=== PATIENT | female | born 1955 | race Caucasian/White ===

== ENCOUNTER → 2017-06-15 09:42 | Outpatient (CLI) | payer BC, SELFPAY ==
[2017-06-15 10:35] VITALS: PULSE 85; PULSE 90
[2017-06-15 12:05] VITALS: BP 130/84; BP 170/98; PULSE 107; PULSE 85; RESP 16; RESP 26; O2SAT 92; O2SAT 94
== END ==
PROVIDERS: Family Provider Family Medicine; PCP Family Medicine; Visit Provider Nurse Practitioner Family
DX: J44.9 Chronic obstructive pulmonary disease, unspecified (principal)
CPT/HCPCS: 94618; 94640; 94726

== ENCOUNTER → 2017-10-05 12:23 | Outpatient (CLI) | payer BC, SELFPAY ==
[2017-10-05 13:45] LABS: Alanine Aminotransferase 19 U/L (12-78); Albumin/Globulin Ratio 1.1 (1.1-1.8); Alkaline Phosphatase 92 U/L (46-116); Aspartate Amino Transferase 11 U/L (15-37); Bilirubin,Total 0.3 mg/dL (0.2-1.0); Blood Urea Nitrogen 10 mg/dL (7-18); Calcium 10.3 mg/dL (8.5-10.1); Carbon Dioxide 27 mmol/L (21.0-32.0); Chloride 99 mmol/L (98-107); Creatinine,Serum 0.46 mg/dL (0.55-1.02); Estimated Glomerular Filt Rate 139 ml/min (>60); GFR (African American) 168 ML/MIN (>60); Globulin 3.5 gm/dl (1.3-3.2); Glucose 109 mg/dL (74-106); Sodium 138 mmol/L (136-145); Total Protein,Serum 7.5 gm/dL (6.4-8.2); Troponin I < 0.02 ng/ml (0.00-0.06)
[2017-10-05 14:13] LABS: D-Dimer 167 ng/mL (0-400)
--- NOTE | 2017-10-05 14:14 | CT_ITS ---
CT angio chest HISTORY: ITS.REASON: CHEST PAIN AT REST ORDERING PHYSICIAN: Yakelin Montes PATIENT AGE: 62 years COMPARISON: None TECHNIQUE: Axial images obtained following the administration of 75 mL of Isovue 370 . Sagittal, and coronal reformatted images are also generated and reviewed. All CT scans at the facility use one or more dose reduction, viz: automated exposure control; ma/kV adjustment per patient size (including targeted exams where dose is matched to indication; i.e. head); or iterative reconstruction technique. FINDINGS: There is enlargement of the lower pole of the thyroid gland on the left with isodense changes present posteriorly suggesting a 19 x 13 mm nodule. This may be confirmed with ultrasound. No evidence of pulmonary embolus. No evidence of aortic aneurysm or dissection. There are atheromatous changes of the aorta and ostia of the great vessels. There are coronary artery calcifications present. No mediastinal or hilar mass or adenopathy Centrilobular emphysematous changes are present. No lobar consolidation or collapse. There is hyperinflation with bronchial thickening consistent with COPD. There is evidence of old granulomatous disease a 4 mm noncalcified fissural nodule present in the left major fissure inferiorly. Minimal atelectatic or fibrotic changes are present in the left lung base posterior medially. Upper abdominal images show mild enlargement of the left adrenal gland nonspecific maintaining an adreniform shape. No acute bony anomalies. 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 IMPRESSION: 1. No evidence of pulmonary embolus, aortic aneurysm, or aortic dissection. 2. 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 Atheromatous changes are present involving the thoracic aorta and upper abdominal aorta. 3. Centrilobular emphysema/COPD 4. Enlarged left lobe of the thyroid gland with possible left thyroid nodule
--- NOTE | 2017-10-05 14:36 | HMH.ITSHM ---
VENTOLIN,FLUTICASONE MONTEKELUKAST SODIUM LEXAPRO DILTIAZEM GLIMPERIDE OMEPRAZOLE JANUMET LISINOPRIL THEOPHYLLINE PREDNEISONE LEVAQUIN LANTUS VIT D
== END ==
PROVIDERS: PCP Nurse Practitioner; Visit Provider Nurse Practitioner
DX: R07.9 Chest pain, unspecified (principal); R06.02 Shortness of breath
CPT/HCPCS: 36415; 71275; 80053; 82565; 83880; 84484; 84520; 85378; Q9967

== ENCOUNTER → 2017-11-24 09:28 | Outpatient (CLI) | payer BC, SELFPAY ==
--- NOTE | 2017-11-24 09:37 | CT_ITS ---
CT abdomen wo con CLINICAL INDICATION: Left upper quadrant pain, recent fall with injury and pain ITS.REASON: ABDOMINAL PAIN ORDERING PHYSICIAN: Yakelin Montes PATIENT AGE: 62 years COMPARISON: None TECHNIQUE: Axial images obtained with sagittal and coronal reformats. All CT scans at the facility use one or more dose reduction, viz: automated exposure control, ma/kV adjustment per patient size (including targeted exams where dose is matched to indication, i.e. head), or iterative reconstruction technique. PROCEDURE: Oral Contrast: None IV Contrast: None . FINDINGS: There are atelectatic changes in the left lung base which have developed since 10/05/2017. The liver has an unremarkable appearance. There are multiple stones within a contracted gallbladder. The spleen has an unremarkable appearance. Left adrenal gland is somewhat enlarged but maintains an adreniform shape. Unremarkable. Right adrenal gland. There is a homogeneous area of soft tissue density in the region of the pancreatic head measuring 2 x 1.8 cm. Repeat exam with pancreatic protocol without and with contrast suggested for further evaluation. There are some punctate calcifications in the region of the pancreatic head as well which could represent sequela from chronic pancreatitis Unremarkable kidneys. There is a small ventral abdominal wall hernia containing fat. No intestinal obstruction or free air. Degenerative disc disease is present in the lower thoracic and lumbar spine. IMPRESSION: 1. Cholelithiasis. 2. 2 cm hypoattenuating lesion in the pancreatic head. Further workup with pancreatic protocol without with contrast suggested for better classification of the lesion. 3. Scattered calcific densities in the pancreatic head suggesting chronic pancreatitis. 4. Small ventral abdominal wall hernia containing fat
== END ==
PROVIDERS: Family Provider Family Medicine; PCP Nurse Practitioner; Visit Provider Nurse Practitioner
DX: R10.12 Left upper quadrant pain (principal)
CPT/HCPCS: 74150

== ENCOUNTER 2018-08-25 14:15 | Observation (INO) ==
[2018-08-25 14:37] LABS: Basophils # 0.1 K/mm3 (0-0.2); Eosinophils # 0.2 K/mm3 (0.0-0.4); Eosinophils % 1.6 % (0.1-12.0); Hematocrit 50.2 % (37.0-47.0); Hemoglobin 16.9 g/dL (12.2-16.2); Lymphocytes # 4.2 K/mm3 (0.7-4.5); Lymphocytes % 29.3 % (10-50); Mean Corpuscular HGB Conc 33.6 g/dL (31.8-35.4); Mean Corpuscular Hemoglobin 29.5 pg (27.0-31.2); Mean Corpuscular Volume 87.9 fl (81-99); Mean Platelet Volume 7.9 fl (7.4-10.4); Monocytes # 0.9 K/mm3 (0.1-1.0); Monocytes % 6.3 % (1.7-9.3); Neutrophils # 8.8 K/mm3 (1.8-7.8); Neutrophils % 61.8 % (37.0-80.0); Platelet Count 284 K/mm3 (142-424); White Blood Count 14.3 K/mm3 (4.8-10.8)
--- NOTE | 2018-08-25 14:45 | Emergency Department Note ---
ED Disposition Clinical Impression: Right facial numbness Disposition: Admitted as Observation Condition on Discharge: Fair Referrals: Provider,Referral, [Primary Care Provider] - - Critical Care Critical Care Time: No Attestation: On 08/25/18, the high probability of a clinically significant, sudden or life threatening deterioration of the following system(s) required my full and direct attention, intervention and personal management. The time I documented below is in addition to time spent performing reported procedures but includes the following listed in this critical care notation. Medical Decision Making - Ariel Inquiry Pt receiving controlled substance: No Vital Signs: 08/25/18 14:16 08/25/18 15:05 08/25/18 15:46 Temperature 97.0 F L Temperature Source Temporal Artery Scan Pulse Rate [Right Brachial] 81 76 73 Respiratory Rate 21 20 20 Blood Pressure [Right Arm] 163/85 H 160/70 H 154/65 H Blood Pressure Mean [Right Arm] 111 100 94 Blood Pressure Source [Right Arm] Automatic Cuff Automatic Cuff Automatic Cuff Blood Pressure Position [Right Arm] Sitting Sitting Sitting 02 Sat by Pulse Oximetry 98 91 L 93 L Oxygen Delivery Method Room Air Room Air Room Air 08/25/18 16:38 Temperature Temperature Source Pulse Rate [Right Brachial] 80 Respiratory Rate Blood Pressure [Right Arm] 161/77 H Blood Pressure Mean [Right Arm] 105 Blood Pressure Source [Right Arm] Automatic Cuff Blood Pressure Position [Right Arm] Sitting 02 Sat by Pulse Oximetry 91 L Oxygen Delivery Method Room Air - Lab Data Lab Results 08/25/18 14:15: WBC 14.3 H, RBC 5.70 H, Hgb 16.9 H, Hct 50.2 H, MCV 87.9, MCH 29.5, MCHC 33.6, RDW 14.0, Plt Count 284, MPV 7.9, Neut % (Auto) 61.8, Lymph % (Auto) 29.3, [place] % (Auto) 6.3, Eos % (Auto) 1.6, Baso % (Auto) 1.0, Neut # (Auto) 8.8 H, Lymph # (Auto) 4.2, [place] # (Auto) 0.9, Eos # (Auto) 0.2, Baso # (Auto) 0.1 08/25/18 14:15: Sodium 136, Potassium 3.4 L, Chloride 99, Carbon Dioxide 28, Anion Gap 12.4, BUN 11, Creatinine 0.59, Estimated Creat Clear 85, Estimated GFR 104, Est GFR ( Amer) 125, Glucose 208 H, Calcium 9.4, Total Bilirubin 0.4, AST 4 L, ALT 28, Alkaline Phosphatase 113, Troponin I < 0.02, Total Protein 8.3 H, Albumin 4.2, Globulin 4.1 H, Albumin/Globulin Ratio 1.0 L 08/25/18 14:15: Theophylline 7.6 L Result diagrams: 08/25/18 14:15 08/25/18 14:15 Orders (Tests/Meds): ED MEDICATIONS Generic Name Dose Route Start Last Admin Trade Name Freq PRN Reason Stop Dose Admin Insulin Human Lispro 0 unit 08/25/18 21:00 Humalog 100 Units/Ml 3ml Vial (Ssi) SQ 09/24/18 20:59 ACHS ESTRADA Protocol Discontinued Medications Generic Name Dose Route Start Last Admin Trade Name Freq PRN Reason Stop Dose Admin Aspirin 324 mg 08/25/18 17:40 Aspirin 81mg Chewable Tablet PO 08/25/18 17:41 ONCE ONE Ioversol 100 ml 08/25/18 16:56 08/25/18 16:57 Rad-Optiray 320 50ml Syringe IV 08/25/18 16:57 100 ml ONCE ONE Administration Protocol Ondansetron HCl 4 mg 08/25/18 17:38 Zofran 4mg/2ml Vial IV 08/25/18 17:39 ONCE ONE - CT Data CT Scan: Head Time Received: 17:[address] Reviewed: Yes: I have viewed the radiologist's interpretation Findings Narrative: CT Head #1 no contrast: IMPRESSION: 1. Possible small space-occupying lesion in the left frontal lobe versus partial by larissa artifact. Consider follow-up exam without and with contrast 2. Otherwise negative Dictated By: Venkatesh Garg MD Signed By: <Electronically signed by Venkatesh Garg MD in [place]> 08/25/[address] Head #2 with and without contrast: IMPRESSION: No acute intracranial findings. No enhancing lesion. Subtle low density in the left frontal lobe may be due to an area of minor encephalomalacia change versus artifact Dictated By: Venkatesh Garg MD Signed By: <Electronically signed by Venkatesh Garg MD in [place]> 08/25/18 3834 - ECG Data Tracing #1 EKG interpreted by Shay Zepeda MD: Rhythm: sinus Rate: 73 [place]: Left Ectopy: Premature ventricular contraction Conduction: normal ST Segment Changes: none T Wave Changes: none Q Waves: none Poor R wave progression - Physician Consults Physician Consulted: Amrita Time: 17:25 Reason -: Admission Comment/Response: Agrees to admit the patient to the hospital. We discussed the patient's clinical information, including history, exam, laboratory and radiology results and ED course. Per hospital procedure, I will write temporary bridge inpatient orders on the patient. Specific orders requested by the admitting physician: Aspirin, carotid dopplers tomorrow - Reevaluation(s) Time: 17:40 Reevaluation #1: No change in facial numbness. No new neurologic deficits. No facial weakness. Just has right-sided facial decreased sensation. Complains of nausea with movement. General Adult HPI - General Chief complaint: PAIN Stated complaint: sinus infection, head pain Time Seen by Provider: 08/25/18 14:45 Mode of Arrival: Ambulatory Limitations: No Limitations Description of Symptoms (Recalled from ER Triage Doc. by RN): nasal congestion, sinus drainage, right side facial pain - History of Present Illness HPI narrative: Complains of right-sided facial numbness, vomiting that began" 2 wee hours of the morning". She cannot tell me what time the onset was. She is currently being treated for sinus infection. Has been having sinus drainage and pressure in her cheeks. She is currently on antibiotics and steroids. 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 Denies a headache or any pain at this time. Currently does not have nausea or dizziness. - Related Data Home Medications Medication Instructions Recorded Confirmed Ergocalciferol (Vitamin D2) 50,000 units PO WEEKLY 08/25/18 08/25/18 [Drisdol 50,000 units (1.25mg) capsule] Escitalopram Oxalate 20 mg PO DAILY 08/25/18 08/25/18 Glimepiride 4 mg PO DAILY 08/25/18 08/25/18 Insulin Glargine,Hum.rec.anlog 20 unit SQ DAILY 08/25/18 08/25/18 [Osbaldoaglvioleta Smith U-100] Omeprazole [Omeprazole 20mg 20 mg PO DAILY 08/25/18 08/25/18 Capsule] Potassium Chloride [Klor-con 20 20 mg PO DAILY 08/25/18 08/25/18 mEq tablet] Theophylline Anhydrous 400 mg PO BID 08/25/18 08/25/18 [Theophylline] cephALEXin [cephALEXin 500mg 500 mg PO BID 08/25/18 08/25/18 capsule] dilTIAZem HCl [Diltiazem 300mg 300 mg PO DAILY 08/25/18 08/25/18 24Hr ER Cap] predniSONE [Deltasone 20mg 20 mg PO BID 08/25/18 08/25/18 tablet] Allergies Allergy/AdvReac Type Severity Reaction Status Date / Time penicillin G [PENICILLIN G] Allergy Mild Unverified 04/07/17 15:34 [facility] History - Hepatitis A Screen Drug use history?: No High risk sexual behaviors?: No History of sexually transmitted infection?: No Currently employed?: No Childcare worker?: No Do you have indoor plumbing?: Yes Do you have electricity?: Yes Attestation statement:: This patient has been screened for Hepatitis A risk factors. I have reviewed the patient's past medical history: Yes ROS Obtained: Yes All systems reviewed & no additional complaints - Constitutional Constitutional: Denies fever(s) - Eyes Eyes: Denies change in vision - Cardiovascular Cardiovascular: Denies chest pain - Respiratory Respiratory: No dyspnea - Gastrointestinal Gastrointestingal: Reports: nausea, vomiting. Denies: abdominal pain - Neurologic Neurologic: Denies headache(s), Reports numbness (Right face), Denies weakness Comments: No numbness or weakness of extremities Physical Exam - General General appearance: alert, in no apparent distress - Head Head exam: atraumatic, normocephalic - Eye Eye exam: Present: normal appearance, PERRL, EOMI - ENT ENT exam: Present: mucous membranes moist - Neck Neck exam: Present: normal inspection, trachea midline - Chest Chest inspection: Present: normal inspection, symmetric chest wall rise - Respiratory Respiratory exam: Present: normal lung sounds bilaterally. Absent: respiratory distress - Cardiovascular Cardiovascular exam: Present: regular rate, normal rhythm, normal heart sounds - Abdominal Exam Abdominal exam: Present: soft. Absent: distention, tenderness - Extremities Exam Extremities exam: Present: normal inspection - Neurological Exam Neurological exam: Present: alert, oriented X3 - Expanded Neurological Exam Comment: Decreased sensation in her right side of face both forehead and lower face. Sensation intact otherwise. No facial droop, normal smile and grimace. Remainder of cranial nerves, motor, and sensory normal. [id number] normal. - Psychiatric Psychiatric exam: Present: normal affect, normal mood - Skin Skin exam: Present: warm, dry
[2018-08-25 14:47] LABS: Alanine Aminotransferase 28 U/L (12-78); Albumin Level 4.2 gm/dL (3.4-5.0); Alkaline Phosphatase 113 U/L (46-116); Anion Gap 12.4 mEq/L (5-15); Aspartate Amino Transferase 4 U/L (15-37); Bilirubin,Total 0.4 mg/dL (0.2-1.0); Blood Urea Nitrogen 11 mg/dL (7-18); Calcium 9.4 mg/dL (8.5-10.1); Carbon Dioxide 28 mmol/L (21.0-32.0); Chloride 99 mmol/L (98-107); Globulin 4.1 gm/dl (1.3-3.2); Glucose 208 mg/dL (74-106); Potassium 3.4 mmoL/L (3.5-5.1); Sodium 136 mmol/L (136-145); Total Protein,Serum 8.3 gm/dL (6.4-8.2)
--- NOTE | 2018-08-26 07:21 | Pharmacy Consult Notes ---
[facility] Pharmacy VTE Monitoring - Patient Demographics Admission date: 08/25/18 Report Date: 08/26/18 Time: 07:21 Allergies/Adverse Reactions: Patient Allergies penicillin G [PENICILLIN G] Allergy (Mild, Verified 08/25/18 19:34) Height: 1.75 m Weight: 87.146 kg Patient Problems: Current Active Problems (Updated 08/25/18 @ 17:40 by Shay Zepeda MD) Right facial numbness (Acute) - VTE Risk Labs: VTE Related Lab Results Hgb 16.9 g/dL (12.2-16.2) H 08/25/18 14:15 Hct 50.2 % (37.0-47.0) H 08/25/18 14:15 Plt Count 284 K/mm3 (142-424) 08/25/18 14:15 BUN 11 mg/dL (7-18) 08/25/18 14:15 Creatinine 0.59 mg/dL (0.55-1.02) 08/25/18 14:15 Estimated Creat Clear 85 mL/min (50-200) 08/25/18 14:15 Was VTE Risk Assessment Performed: Yes VTE Score: 5 VTE Risk Level: Low Risk Clinical Trial Participant: No - Prophylaxis VTE Prophylaxis Ordered?: Yes Types of VTE Prophylaxis: TEDS Knee High Location of Applied Device: Bilateral Lower Extremeties
--- NOTE | 2018-08-26 07:35 | H&P/Discharge Summary ---
General - General Admission date:: 08/25/18 Discharge date: 08/26/18 *Admission Date: 08/25/18 *Chief complaint: Facial numbness *History of present illness: 63-year-old female presented to the emergency department yesterday afternoon after onset of right sided facial numbness in the forehead and maxillary area. When facial numbness did not resolve after a little over 12 hours patient sought treatment at the emergency department. At that point patient's facial numbness had not worsened nor had it improved. She had been treated for a sinus infection for the last week and admits to a lot of pressure around both eyes. She has a history of Steven's palsy but had not developed any facial asymmetry. Patient was worked up in the emergency department with initial noncontrasted CT scan showing a small area in the left frontal lobe that required repeat CT scanning with contrast. There was no acute infarct identified [facility] History I have reviewed the patient's past medical history: Yes Medical History: Reports:: Chronic Obstructive Pulmonary Disease (COPD), Diabetes Mellitus Type 2 Denies:: Cancer, MRSA *Have you ever received a pneumonia vaccine?: No *Have you received a flu vaccine this season?: Yes Other Surgeries: Yes: Hysterectomy-Total Amputation: No - *Social History Educational Level: Completed High School Smoking Status: Current every day smoker Tobacco Type: cigarettes # Packs/Day (cigarettes): 1 Alcohol Intake: never *Occupational Status:: disabled Household Members: family *Travel in the last 8 weeks: None - Psychiatric History Expresses thoughts of harming self/others: None Suicide Plan Description: No Plan Family Hx:: Asthma, Cancer, Diabetes, Heart Attack, Hyperlipidemia, Hypertension Review of Systems - Constitutional Denies body ache(s), Denies chills, Denies fever(s) - ENT Denies abnormal hearing - *Cardiovascular Denies chest pain - *Respiratory Denies change in phlegm color, Denies chest congestion, Denies shortness of breath with activity - *Gastrointestinal Reports vomiting, Denies abdominal pain - *Musculoskeletal Denies abnormal walking - *Neurologic Reports dizziness, Reports numbness (Right face), Denies abnormal walking, Denies abnormal hearing, Denies abnormal movements, Denies abnormal speech, Denies behavioral changes, Denies burning sensations, Denies confusion, Denies seizure-like activity, Denies unsteadiness, Denies localized weakness, Denies frequent falls, Denies headache(s), Denies weakness Exam Vital signs and Labs for Last 24 Hours: Temp Pulse Resp BP Pulse Ox 98.3 F 77 20 160/79 H 95 08/26/18 04:00 08/26/18 04:00 08/26/18 04:00 08/26/18 04:00 08/26/18 04:00 Laboratory Results - last 24 hr 08/25/18 14:15: WBC 14.3 H, RBC 5.70 H, Hgb 16.9 H, Hct 50.2 H, MCV 87.9, MCH 29.5, MCHC 33.6, RDW 14.0, Plt Count 284, MPV 7.9, Neut % (Auto) 61.8, Lymph % (Auto) 29.3, [place] % (Auto) 6.3, Eos % (Auto) 1.6, Baso % (Auto) 1.0, Neut # (Auto) 8.8 H, Lymph # (Auto) 4.2, [place] # (Auto) 0.9, Eos # (Auto) 0.2, Baso # (Auto) 0.1 08/25/18 14:15: Sodium 136, Potassium 3.4 L, Chloride 99, Carbon Dioxide 28, Anion Gap 12.4, BUN 11, Creatinine 0.59, Estimated Creat Clear 85, Estimated GFR 104, Est GFR ( Amer) 125, Glucose 208 H, Calcium 9.4, Total Bilirubin 0.4, AST 4 L, ALT 28, Alkaline Phosphatase 113, Troponin I < 0.02, Total Protein 8.3 H, Albumin 4.2, Globulin 4.1 H, Albumin/Globulin Ratio 1.0 L 08/25/18 14:15: Theophylline 7.6 L 08/25/18 20:31: POC Glucose 176 H 08/26/18 06:14: POC Glucose 203 H I & O for Last 24 hours: Intake & Output 08/23/18 08/24/18 08/25/18 08/26/18 11:59 11:59 11:59 11:59 Output Total 900 / 900 Balance -900 / -900 Weight 192 lb 2 oz Narrative: Patient is awake and alert sitting up on the side of the bed eating breakfast this morning. HEENT exam: There is no facial rash. There is no facial asymmetry. Tympanic membranes are intact without effusion. Oropharynx is moist and clear. Tongue is in the midline. Pupils are equal round and reactive to light. Neck is without lymphadenopathy. Lungs are clear to auscultation. Heart has a regular rate and rhythm. Neck is without carotid bruits. Neurologic exam: Symmetric upper and lower extremity movement. Intact sensation of all extremities. Decreased sensation in the right forehead and right maxillary area with symmetric sensation along the jaw. Musculoskeletal exam: Symmetric strength of muscle groups in the upper and lower extremities. Hospital Course Hospital Course: Patient was admitted for observation. By the following morning (August 26) patient noted improvement in the numbness of the face. Therefore patient was discharged to home. Results Labs on day of discharge: Labs from last 24 hours 08/26/18 08/25/18 08/25/18 06:14 20:31 14:15 WBC RBC Hgb Hct MCV MCH MCHC RDW Plt Count MPV Neut % (Auto) Lymph % (Auto) [place] % (Auto) Eos % (Auto) Baso % (Auto) Neut # (Auto) Lymph # (Auto) [place] # (Auto) Eos # (Auto) Baso # (Auto) Sodium Potassium Chloride Carbon Dioxide Anion Gap BUN Creatinine Estimated Creat Clear Estimated GFR Est GFR ( Amer) Glucose POC Glucose 203 H 176 H Calcium Total Bilirubin AST ALT Alkaline Phosphatase Troponin I Total Protein Albumin Globulin Albumin/Globulin Ratio Theophylline 7.6 L 08/25/18 08/25/18 14:15 14:15 WBC 14.3 H RBC 5.70 H Hgb 16.9 H Hct 50.2 H MCV 87.9 MCH 29.5 MCHC 33.6 RDW 14.0 Plt Count 284 MPV 7.9 Neut % (Auto) 61.8 Lymph % (Auto) 29.3 [place] % (Auto) 6.3 Eos % (Auto) 1.6 Baso % (Auto) 1.0 Neut # (Auto) 8.8 H Lymph # (Auto) 4.2 [place] # (Auto) 0.9 Eos # (Auto) 0.2 Baso # (Auto) 0.1 Sodium 136 Potassium 3.4 L Chloride 99 Carbon Dioxide 28 Anion Gap 12.4 BUN 11 Creatinine 0.59 Estimated Creat Clear 85 Estimated GFR 104 Est GFR ( Amer) 125 Glucose 208 H POC Glucose Calcium 9.4 Total Bilirubin 0.4 AST 4 L ALT 28 Alkaline Phosphatase 113 Troponin I < 0.02 Total Protein 8.3 H Albumin 4.2 Globulin 4.1 H Albumin/Globulin Ratio 1.0 L Theophylline DS: Diagnosis - Discharge Diagnosis (1) Right facial numbness Status: Acute Discharge Medications - Medications for Discharge Home Medication List at Discharge: No Action dilTIAZem HCl [Diltiazem 300mg 24Hr ER Cap] 300 mg PO DAILY Theophylline Anhydrous [Theophylline] 400 mg PO BID predniSONE [Deltasone 20mg tablet] 20 mg PO BID Potassium Chloride [Klor-con 20 mEq tablet] 20 mg PO DAILY Insulin Glargine,Hum.rec.anlog [Basaglar Kwikpen U-100] 20 unit SQ DAILY Glimepiride 4 mg PO DAILY Escitalopram Oxalate 10 mg PO DAILY Ergocalciferol (Vitamin D2) [Drisdol 50,000 units (1.25mg) capsule] 50,000 units PO DIRECTED cephALEXin [cephALEXin 500mg capsule] 500 mg PO Q12H Lisinopril/Hydrochlorothiazide [Lisinopril-Hctz 20-12.5 mg Tab] 2 tab PO DAILY Omeprazole [Omeprazole 20mg Capsule] 20 mg PO DAILY Albuterol Sulfate [Albuterol Sulfate Hfa] 2 puffs IH Q4HP PRN PRN Reason: SHORTNESS OF AIR Disposition Disposition: Home, Self-Care
--- NOTE | 2018-08-26 07:53 | Carotid Imaging Report ---
"Cerebrovascular Exam Indications: 782.0 Disturbance of skin sensation. IMPRESSIONS 1. The bilateral vertebral arteries are patent with normal antegrade flow. 2. Study suggests 50-69% stenosis involving the right internal carotid artery. 3. Study suggests 20-49% stenosis involving the left internal carotid artery. History: Risk factors: Current tobacco use. Hypertension. Diabetes mellitus. Dyslipidemia. Carotid duplex study. Complete study and Doppler flow study including spectral analysis, color and maria scale imaging. Height: Height: 172.7cm. Height: 68in. Weight: Weight: 90.7kg. Weight: 199.6lb. Body mass index: BMI: 30.4kg/m^2. Body surface area: BSA: 2.11m^2. Location: Bedside. Patient status: Inpatient. CRITICAL FINDINGS - Reported to: Marlen LEON - 5-9-19 - 0730 - 50-69% on LICA Incidental findings: A thyroid cyst in the left lobe is noted incidentally. Tables: Arterial flow: + +--------+--------+ |Location |V sys |V ed | + +--------+--------+ |Right CCA - proximal|96.6cm/s|17.3cm/s| + +--------+--------+ |Right CCA - distal |77cm/s |19.6cm/s| + +--------+--------+ |Right ECA |153cm/s |--------| + +--------+--------+ |Right ICA - proximal|144cm/s |33.2cm/s| + +--------+--------+ |Right ICA - mid |93.7cm/s|24.3cm/s| + +--------+--------+ |Right ICA - distal |88.2cm/s|23.2cm/s| + +--------+--------+ |Right vertebral |60.4cm/s|--------| + +--------+--------+ |Left CCA - proximal |94.3cm/s|9.9cm/s | + +--------+--------+ |Left CCA - distal |77.7cm/s|13.2cm/s| + +--------+--------+ |Left ECA |241cm/s |--------| + +--------+--------+ |Left ICA - proximal |93.2cm/s|16cm/s | + +--------+--------+ |Left ICA - mid |86cm/s |22.6cm/s| + +--------+--------+ |Left ICA - distal |98.7cm/s|24.8cm/s| + +--------+--------+ |Left vertebral |80.5cm/s|--------| + +--------+--------+ Velocity ratios: + + + + + + | |Right, V sys|Right, V ed|Left, V sys|Left, V ed| + + + + + + |Max ICA/dist CCA|1.87 |1.69 |1.27 |1.88 | + + + + + + (Report amended ) Electronically signed by: Venkatesh Garg [id number]"
== END 2018-08-26 09:12 | disposition home or self-care (01) ==
LOC: ER 14:15 → 2ND 14:15
PROVIDERS: ADMIT Emergency Medicine; ATTEND Family Medicine
CPT/HCPCS: 70450; 70470; 71010; 71045; 80053; 80198; 82962; 84484; 85025; 93005; 93880; 96374; 99284; G0378; J2405; Q9967

== ENCOUNTER → 2018-09-07 14:12 | Outpatient (CLI) | payer MEDICAID, SELFPAY ==
--- NOTE | 2018-09-07 14:35 | MR_ITS ---
MR head/brain wo/w con HISTORY: Headache, numbness on right side of the face ITS.REASON: TIA ORDERING PHYSICIAN: Yakelin Montes APRN PATIENT AGE: 63 years Comparison: 08/25/2017 TECHNIQUE: Standard multiplanar multiecho sequences are performed without and with gadolinium enhancement. FINDINGS: No midline shift, mass effect, intracranial hemorrhage, or hydrocephalus is evident. No evidence of acute infarction. There are few scattered periventricular and subcortical T2 white matter hyperintensities consistent with ischemic gliotic change from microvascular disease. No enhancing lesions are evident. The cerebellopontine angle, cerebellum, brainstem are unremarkable. There is increased T2 signal within the midbrain consistent with ischemic gliotic change. The pituitary, optic chiasm, and corpus callosum and craniocervical junction are unremarkable. No mastoid effusion or sinus air-fluid levels evident. There is some opacification of the ethmoid sinuses on the left there is complete opacification of the right maxillary sinus. IMPRESSION: 1. No acute intracranial findings. 2. No evidence of acute infarction. There are mild periventricular ischemic gliotic changes as well as nonspecific increased T2 signal the tom consistent with ischemic gliotic change from microvascular disease. 3. Sinus disease
[2018-09-07 15:15] LABS: Blood Urea Nitrogen 11 mg/dL (7-18); Creatinine,Serum 0.63 mg/dL (0.55-1.02); Estimated Glomerular Filt Rate 96 ml/min (>60); GFR (African American) 116 ML/MIN (>60)
--- NOTE | 2018-09-07 15:49 | HMH.ITSHM ---
Current Home Medications as stated by this patient Ev Gaona or customer support representative. [ERGOCALCIFEROL CEPHALEXIN OMREPRAZOLE LISINOPRIL ALBUTEROL ASPIRIN DILTIAZEM THEOPHYLLINE ANHYDROUS POTASSIUM CHLORIDE INSULIN GLIMEPIRIDE ESCITALOPRAM OXALATE
== END ==
PROVIDERS: Visit Provider Nurse Practitioner
DX: G45.9 Transient cerebral ischemic attack, unspecified (principal); G45.1 Carotid artery syndrome (hemispheric)
CPT/HCPCS: 36415; 70553; 82565; 84520; A9576

== ENCOUNTER → 2021-06-28 12:37 | Outpatient (CLI) | payer MEDICARE, OTHER, SELFPAY ==
--- NOTE | 2021-06-28 12:47 | US_ITS ---
FINAL REPORT CLINICAL HISTORY: CLAUDICATION BILATERAL,BILATERAL REST PAIN, DM,HTN,SMOKER,SKIN COLOR CHANGES,WOUNDS LATERAL LEFT ANKLE FINDINGS: ANKLE-BRACHIAL PRESSURE INDICES Pressure indices are as follows: RIGHT LOWER EXTREMITY: Ankle-brachial pressure index: 0.80 Comments: Mildly decreased LEFT LOWER EXTREMITY: Ankle-brachial pressure index: 0.81 Comments: Mildly decreased CONCLUSION: Mild vascular disease of the lower extremities Reviewed, Interpreted and Dictated by Shai Schwarz III, MD Transcribed by Maxine Ambriz Authenticated by Shai Schwarz III, MD on 06/28/2021 03:32:33 PM [facility]
== END ==
PROVIDERS: Visit Provider Family Medicine
DX: E11.40 Type 2 diabetes mellitus with diabetic neuropathy, unspecified (principal); R29.898 Other symptoms and signs involving the musculoskeletal system; I73.9 Peripheral vascular disease, unspecified
CPT/HCPCS: 93923

== ENCOUNTER 2022-04-15 07:49 | Inpatient (IN) | payer MEDICARE, OTHER, SELFPAY ==
[2022-04-15] VITALS (46 sets, daily range): BP systolic 87–165; BP diastolic 41–96; PULSE 70–100; RESP 12–22; TEMP 36.1–43; O2SAT 89–97; BMI 23.6
--- NOTE | 2022-04-15 08:10 | PC.NURSE ---
RICHA POTTS at
--- NOTE | 2022-04-15 08:11 | PC.NURSE ---
dr. ballard at bedside
--- NOTE | 2022-04-15 08:14 | XR_ITS ---
FINAL REPORT CLINICAL HISTORY: abdo pain COMPARISON: August 2018 FINDINGS: The heart size is normal. The mediastinum is within normal limits. There is left basilar opacity. There is no pleural effusion. There is no pneumothorax. There are mild degenerative changes of the shoulders. IMPRESSION: Left basilar opacity favoring atelectasis over pneumonia. Reviewed, Interpreted and Dictated by Shai Schwarz III, MD Transcribed by Adam Mckeon Authenticated and [facility]
--- NOTE | 2022-04-15 08:16 | HMH.EDGENADL ---
Discharge Plan Disposition Patient Disposition: Admitted As Inpatient Condition: Serious Prescriptions Prescriptions: No Action theophylline 400 MG tablet extended release 24 hr 400 mg PO BID Label Comments: TAKE BY MOUTH DIRECTED TWICE DAILY prednisone 20 MG tablet 20 mg PO BID Label Comments: TAKE 1 TABLET BY MOUTH TWICE DAILY UNTIL ALL TAKEN --TAKE WITH FOOD-- diltiazem HCl 300 MG capsule,extended release 24 hr 300 mg PO DAILY potassium chloride 20 MEQ tablet 20 mg PO DAILY Label Comments: TAKE 1 TABLET BY MOUTH EVERY DAY --TAKE WITH FOOD-- cephalexin 500 MG capsule 500 mg PO Q12H Label Comments: TAKE 1 CAPSULE BY MOUTH EVERY 12 HOURS UNTIL ALL TAKEN glimepiride 4 MG tablet 4 mg PO DAILY Label Comments: TAKE 1 TABLET BY MOUTH ONCE DAILY WITH BREAKFAST OR THE FIRST MAIN MEAL OF THE DAY Rx Instructions: WITH BREAKFAST OR FIRST MEAL omeprazole 20 MG capsule,delayed release(DR/EC) 20 mg PO DAILY Label Comments: TAKE 1 CAPSULE BY MOUTH EVERY DAY ergocalciferol (vitamin D2) 50,000 UNIT capsule 50,000 units PO DIRECTED Label Comments: TAKE 1 CAPSULE BY MOUTH TWICE WEEKLY DIRECTED Rx Instructions: TWICE WEEKLY escitalopram oxalate 20 MG tablet 10 mg PO DAILY Label Comments: TAKE 1/2 TABLET BY MOUTH ONCE DAILY insulin glargine 100 UNIT/ML insulin pen 20 unit SQ DAILY lisinopril-hydrochlorothiazide 1 EACH tablet 2 tab PO DAILY albuterol sulfate 8.5 GM HFA aerosol inhaler 2 puffs IH Q4HP PRN (Reason: SHORTNESS OF AIR) Referrals Follow up/Referrals: Provider,Referral, MD [Primary Care Provider] - See instructions Clinical Impressions Clinical Impression: Complete obstruction of small intestine, Incarcerated hernia, Acute dehydration, SARAH (acute kidney injury), Junctional rhythm Instructions Patient Instructions: DI for Diarrhea and Traveler's Diarrhea -- Adult, DI for Diarrhea and Traveler's Diarrhea -- Child, DI for Nausea -- Adult, DI for Nausea -- Child Discharge ED Provider: Shay Zepeda Adult [facility] General Chief complaint: Nausea/Vomiting/Diarrhea Stated complaint: vomiting Time Seen by Provider: 04/15/22 08:05 Mode of Arrival: EMS Source of Information: Patient Limitations: No Limitations Description of Symptoms (Recalled from ER Triage Doc. by RN): Pt reports vomiting x2 days, states unable to keep anything down. Pt vomited in route to hospital with EMS, emesis brown in color. Pt reports a new bulging of her abd x2 days. Area is in L lower abd, tender to the touch. Pt states has known umbilical herna- noted to be protruding, states she does not think it has changed. History of Present Illness HPI narrative: Brought in by ambulance. 2-day history of left lower quadrant pain, left lower quadrant mass, intractable vomiting. Last bowel movement was yesterday and was normal. No diarrhea. No fever. Complains of thirst and dry mouth, decreased urination. She is diabetic, states her blood sugar has been good. She has a ventral hernia in the epigastric area which is chronic, but now has a new mass in the left lower quadrant since Thursday. Prior cholecystectomy, hysterectomy, appendectomy. Related Data Home Medications Medication Instructions Recorded Confirmed cephalexin 500 mg capsule 500 mg PO Q12H Sinus infection 08/25/18 08/26/18 diltiazem HCl 300 mg capsule,24 300 mg PO DAILY Hypertension 08/25/18 08/25/18 hr,extended release ergocalciferol (vitamin D2) 1,250 50,000 units PO DIRECTED 08/25/18 08/26/18 mcg (50,000 unit) capsule supplement escitalopram oxalate 20 mg tablet 10 mg PO DAILY Depression 08/25/18 08/26/18 glimepiride 4 mg tablet 4 mg PO DAILY Diabetes 08/25/18 08/25/18 insulin glargine 100 unit/mL (3 20 unit SQ DAILY Diabetes 08/25/18 08/25/18 mL) subcutaneous pen omeprazole 20 mg capsule,delayed 20 mg PO DAILY GERD 08/25/18
--- NOTE | 2022-04-15 08:16 | PC.NURSE ---
rad notified of xray order
--- NOTE | 2022-04-15 08:22 | ECG_ITS ---
APPROVED REPORT Exam: Resting ECG HR:87 bpm ECG Measurements Heart Rate 87 AXES GA 119 P 270 QRSd 105 QRS -60 QT 400 T 88 QTc 445 Conclusion JUNCTIONAL RHYTHM LEFT ANTERIOR FASCICULAR BLOCK [QRS AXIS <= -45, QR IN I, RS IN II] LEFT VENTRICULAR HYPERTROPHY AND ST-T CHANGE [VOLTAGE CRITERIA PLUS ST/T ABNORMALITY] POSSIBLE ANTERIOR MYOCARDIAL INFARCTION , OF INDETERMINATE AGE [30 ms Q WAVE IN V3/V4, OR R < 0.2 mV IN V4] ABNORMAL ECG UNCONFIRMED REPORT Electronically signed by : Donavan Cash MD 04/15/2022 20:09:38
[2022-04-15 08:23] LABS: Coronavirus 19, PCR Not Detected (NotDetected); Influenza A, PCR Not Detected (NotDetected); Influenza B, PCR Not Detected (NotDetected)
[2022-04-15 08:26] LABS: Basophils # 0.2 K/mm3 (0-0.2); Basophils % 0.8 % (0.1-2.0); Eosinophils # 0.2 K/mm3 (0.0-0.4); Eosinophils % 0.8 % (0.1-12.0); Hematocrit 52.8 % (37.0-47.0); Hemoglobin 17.9 g/dL (12.2-16.2); Lymphocytes # 1.3 K/mm3 (0.7-4.5); Lymphocytes % 6.7 % (10-50); Mean Corpuscular Volume 91.1 fl (81-99); Mean Platelet Volume 9.6 fl (7.4-10.4); Monocytes # 1.2 K/mm3 (0.1-1.0); Monocytes % 5.9 % (1.7-9.3); Neutrophils # 16.9 K/mm3 (1.8-7.8); Neutrophils % 85.8 % (37.0-80.0); Platelet Count 269 K/mm3 (142-424); Red Blood Count 5.79 M/mm3 (4.20-5.40); Red Cell Distribution Width 14.4 % (11.5-17.5); White Blood Count 19.7 K/mm3 (4.8-10.8)
[2022-04-15 08:27] LABS: MANUAL DIFFERENTIAL MANUAL DIFFERENTIAL (MANUAL DIFF)
[2022-04-15 08:29] LABS: Potassium 4.3 mmoL/L (3.5-5.1); Sodium 130 mmol/L (136-145)
[2022-04-15 08:32] LABS: Alanine Aminotransferase 21 U/L (12-78); Albumin Level 4.7 g/dl (3.5-5.0); Albumin/Globulin Ratio 1.4 (1.1-1.8); Alkaline Phosphatase 99 U/L (38-126); Aspartate Amino Transferase 22 U/L (14-36); Bilirubin,Total 0.8 mg/dl (0.2-1.3); Calcium 8.9 mg/dl (8.4-10.2); Carbon Dioxide 33 mmol/L (22.0-30.0); Globulin 3.4 g/dL (1.3-3.2); Glucose 347 mg/dl (74-100); Total Protein,Serum 8.1 g/dl (6.3-8.2)
[2022-04-15 08:33] LABS: Lipase 33 U/L (23-300)
--- NOTE | 2022-04-15 08:34 | PC.NURSE ---
radiology in room
--- NOTE | 2022-04-15 08:34 | PC.NURSE ---
rad at BS for portable chest xray
[2022-04-15 08:35] LABS: Lactic Acid 2.3 mmol/L (0.7-2.1)
[2022-04-15 08:38] LABS: Lymphocytes % 6 % (10-50); Monocytes % 11 % (2-9); Neutrophils % 83 % (42-76); Platelet Estimate Normal; RBC Morphology Normal; Total Cells Counted 100
[2022-04-15 08:39] LABS: Creatinine Clearance Estimated 20 mL/min (50-200); Estimated Glomerular Filt Rate 15 ml/min (>60); GFR (African American) 18 ML/MIN (>60)
[2022-04-15 08:40] LABS: Anion Gap 27.3 mEq/L (5-15)
[2022-04-15 08:41] LABS: Blood Urea Nitrogen 109 mg/dl (7-17); Chloride 74 mmol/L (98-107)
--- NOTE | 2022-04-15 08:49 | PC.NURSE ---
0840 CRITICAL LABS RECEIVED FROM [facility] IN LAB. CHLORIDE 74, BUN 109. PT NAME AND R/V. DR. VIRGEN NOTIFIED
--- NOTE | 2022-04-15 09:01 | CT_ITS ---
FINAL REPORT TECHNIQUE: Axial images through the abdomen and pelvis were performed without contrast. This study was performed with techniques to keep radiation doses as low as reasonably achievable, (ALARA). Individualized dose reduction techniques using automated exposure control or adjustment of mA and/or kV according to the patient's size were employed. CLINICAL HISTORY: abdo pain, LLQ mass, poss incarc hernia COMPARISON: 11/24/2017 FINDINGS: ABDOMEN: There is a 7 mm nodule in the left lung base. It is uncertain if this is new or was obscured by atelectasis on the prior exam. There is a calcified granuloma in the right lung base. The heart size is normal. Limited images of the liver are unremarkable. The patient is status post cholecystectomy. There is moderate vascular calcification. The spleen is normal. There is bilateral adrenal gland enlargement, may represent hyperplasia or adenomas. The aorta is normal in caliber. There is no significant free fluid or adenopathy. There is no nephrolithiasis. There is no hydronephrosis. The stomach and proximal and mid small bowel is fluid-filled and distended. PELVIS: The appendix is not identified. There is a large amount of retained stool throughout the colon. There is sigmoid diverticulosis without evidence of diverticulitis. There is a midline supraumbilical hernia containing nonobstructed portions of sigmoid colon. There is a left paramedian anterior pelvic wall hernia containing small bowel loops. Hernia sac measures 7 mm. Findings are consistent with small-bowel obstruction secondary to the pelvic hernia. The urinary bladder is unremarkable. There is no significant free fluid or adenopathy. IMPRESSION: Small bowel obstruction secondary to the pelvic hernia. Left lung base nodule as detailed above. Recommend six-month follow-up chest CT. Reviewed, Interpreted and Dictated by Shai Schwarz III, MD Transcribed by Ghada Le Authenticated and [facility]
--- NOTE | 2022-04-15 09:09 | PC.NURSE ---
pt to CT via stretcher with truck technician
--- NOTE | 2022-04-15 09:09 | PC.NURSE ---
pt to CT via stretcher
--- NOTE | 2022-04-15 09:18 | PC.NURSE ---
Back from CT
--- NOTE | 2022-04-15 09:20 | PC.NURSE ---
pt return from CT
--- NOTE | 2022-04-15 10:01 | XR_ITS ---
FINAL REPORT CLINICAL HISTORY: NG tube placement COMPARISON: 04/15/2022 FINDINGS: SINGLE-VIEW CHEST The heart size is normal. The mediastinum is normal. There is persistent left base atelectasis or pneumonia. New NG tube tip terminates in the body of the stomach. There is no pneumothorax. IMPRESSION: Interval NG tube placement. Persistent left base atelectasis or pneumonia. Reviewed, Interpreted and Dictated by Shai Schwarz III, MD Transcribed by Ghada Le Authenticated and [facility]
--- NOTE | 2022-04-15 10:01 | PC.NURSE ---
Called radiology for portable chest xray to patients room
--- NOTE | 2022-04-15 10:07 | PC.NURSE ---
Radiology in room for x-ray
--- NOTE | 2022-04-15 10:12 | PC.NURSE ---
Addendum entered by Karen Painter RN 04/15/22 10:13: per RICHA POTTS request Original Note: pt NG tube to low intermittent suction at this time
--- NOTE | 2022-04-15 10:50 | PC.NURSE ---
Paged Dr. Ocampo to return call to ER
--- NOTE | 2022-04-15 10:59 | PC.NURSE ---
RICHA POTTS speaking with Dr. Ocampo
--- NOTE | 2022-04-15 11:08 | PC.NURSE ---
Called hospitalist, Dr. Pierce reports hes on another call and will call us back
--- NOTE | 2022-04-15 11:20 | PC.NURSE ---
Dr. Ocampo at BS
--- NOTE | 2022-04-15 11:29 | PC.NURSE ---
RICHA POTTS speaking with Dr. Pierce
--- NOTE | 2022-04-15 11:45 | PC.NURSE ---
Spoke with Geovanna in care management regarding admission
--- NOTE | 2022-04-15 11:55 | PC.NURSE ---
pt transported to OR per stephanie dodd and stephanie son
--- NOTE | 2022-04-15 12:04 | EXP.SURG.CON ---
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 She had previously undergone PREMA/BSO several decades ago. She has a known chronic umbilical hernia containing bowel. She states that several days ago on 04/13/2022 she had developed a knot in the lower abdomen. That this had become quite tender. She states that she has had ongoing vomiting and has been unable to keep anything down. The area in the lower abdomen has been quite tender and sore to touch. Due to the persistence of her symptoms she had finally presented to the emergency department this morning. She was found to have a leukocytosis. She had findings of severe dehydration with acute kidney injury. She underwent CT scan which reveals small bowel obstruction secondary to pelvic hernia . Surgical consultation was obtained. [facility] Disclaimer: The information contained in this section may have been updated after the patient was seen, as this information can be updated by other users. Social History Smoking Status: Current every day smoker tobacco type: cigarettes packs per day: 1 alcohol intake: never current occupational status: disabled Travel in the last 8 weeks: None household members: family caffeine: Yes Review of Systems Constitutional Constitutional: Denies headache(s) and Denies weakness ENT Ears, Nose, Mouth, and Throat: Denies headache(s) *Musculoskeletal Musculoskeletal: Denies numbness *Neurologic Neurologic: Denies headache(s), Denies numbness and Denies weakness Meds Home Medications and Allergies Home Medications Medication Instructions Recorded Confirmed Type cephalexin 500 mg capsule 500 mg PO Q12H Sinus infection 08/25/18 08/26/18 History diltiazem HCl 300 mg capsule,24 300 mg PO DAILY Hypertension 08/25/18 08/25/18 History hr,extended release ergocalciferol (vitamin D2) 1,250 50,000 units PO DIRECTED 08/25/18 08/26/18 History mcg (50,000 unit) capsule supplement escitalopram oxalate 20 mg tablet 10 mg PO DAILY Depression 08/25/18 08/26/18 History glimepiride 4 mg tablet 4 mg PO DAILY Diabetes 08/25/18 08/25/18 History insulin glargine 100 unit/mL (3 20 unit SQ DAILY Diabetes 08/25/18 08/25/18 History mL) subcutaneous pen omeprazole 20 mg capsule,delayed 20 mg PO DAILY GERD 08/25/18 08/25/18 History release potassium chloride 20 mEq 20 mg PO DAILY Supplement 08/25/18 08/25/18 History tablet,extended release(part/cryst) prednisone 20 mg tablet 20 mg PO BID Sinus infection 08/25/18 08/25/18 History theophylline 400 mg 400 mg PO BID COPD 08/25/18 08/25/18 History tablet,extended release 24 hr albuterol sulfate 90 mcg/actuation 2 puffs IH Q4HP PRN SHORTNESS OF 08/26/18 08/26/18 History aerosol inhaler AIR lisinopril 20 2 tab PO DAILY Hypertension 08/26/18 08/26/18 History mg-hydrochlorothiazide 12.5 mg tablet New Prescriptions to Start Prescriptions: Allergies Allergy/AdvReac Type Severity Reaction Status Date / Time penicillin G [PENICILLIN G] Allergy Mild Verified 08/25/18 19:34 Exam (Inpt) Vital signs and Labs for Last 24 Hours: Temp Pulse Resp BP Pulse Ox 98.8 F 91 H 16 101/41 L 96 04/15/22 07:50 04/15/22 11:46 04/15/22 11:46 04/15/22 11:46 04/15/22 11:46 Laboratory Results - last 24 hr 04/15/22 07:58: WBC 19.7 H, RBC 5.79 H, Hgb 17.9 H, Hct 52.8 H, MCV 91.1, MCH 31.0, MCHC 34.0, RDW 14.4, Plt Count 269, MPV 9.6, Neut % (Auto) 85.8 H, Lymph % (Auto) 6.7 L, Rawlins % (Auto) 5.9, Eos % (Auto) 0.8, Baso % (Auto) 0.8, Neut # (Auto) 16.9 H, Lymph # (Auto) 1.3, Rawlins # (Auto) 1.2 H, Eos # (Auto) 0.2, Baso # (Auto) 0.2, Total Counted 100, Neutrophils % (Manual) 83 H, Lymphocytes % (Manual) 6 L, Monocytes % (Manual) 11 H, Platelet Estimate Normal, RBC Morphology Normal 04/15/22 07:58: Sodium 130 L, Potassium 4.3, Chl
[2022-04-15 12:19] LABS: POC Glucose,Bedside 274 (70-110)
[2022-04-15 12:21] LABS: Reflex Lactic Add Lactic Reflex
--- NOTE | 2022-04-15 12:31 | EXP.HP ---
History of Present Illness *Admission Date: 04/15/22 *Reason for visit:: Abdominal pain, dehydration *History of present illness: Ms. Landers is a 66-year-old female with history of COPD (5 L), diabetes, tobacco use disorder (continues to smoke daily). She presented to the ER?with 2 days of vomiting and abdominal pain. Has not had a bowel movement in 1 to 2 days per her report. Been unable to keep anything down. Was brought to the hospital via EMS due to weakness and abdominal pain. Noted to have brown emesis during transport. She has had a new bulge in her abdomen in her left lower quadrant for the past 2 days per her report. This area has been tender to touch. Concern for incarcerated hernia. Evaluated by surgery in the ER. Labs in the ER showed leukocytosis, tachycardia, meeting criteria for SIRS. Also found to have significant dehydration and SARAH. CT of her abdomen revealed small bowel obstruction secondary to pelvic hernia. Taken from the ER to surgery. Medicine consulted for admission. On my evaluation, she denies any diarrhea, fever. Complains of being thirsty. Has had decreased urine output. Seen both before and after surgery. States she is feeling a little better after surgery. Stable on baseline oxygen. Of note, history of multiple abdominal surgeries including PREMA/BSO, cholecystectomy. Chronic umbilical hernia with no history of obstruction. [facility] Disclaimer: The information contained in this section may have been updated after the patient was seen, as this information can be updated by other users. Medical History Arthritis Asthma COPD (chronic obstructive pulmonary disease) Diabetes Surgical History History of colonoscopy History of laparoscopic cholecystectomy History of total hysterectomy Family History No significant family history Social History Smoking Status: Current every day smoker tobacco type: cigarettes packs per day: 1 alcohol intake: never substance use type: denies use current occupational status: disabled Travel in the last 8 weeks: None household members: family caffeine: Yes Review of Systems Review of Systems Review of systems (narrative): 14 point review of systems performed, pertinent positives and negatives as per HPI Constitutional Constitutional: Denies headache(s) and Denies weakness ENT Ears, Nose, Mouth, and Throat: Denies headache(s) *Musculoskeletal Musculoskeletal: Denies numbness *Neurologic Neurologic: Denies headache(s), Denies numbness and Denies weakness Meds Home Medications and Allergies Home Medications Medication Instructions Recorded Confirmed Type diltiazem HCl 300 mg capsule,24 300 mg PO DAILY HEART RATE 08/25/18 04/15/22 History hr,extended release omeprazole 20 mg capsule,delayed 20 mg PO DAILY GERD 08/25/18 04/15/22 History release potassium chloride 20 mEq 20 mg PO BID Supplement 08/25/18 04/15/22 History tablet,extended release(part/cryst) theophylline 400 mg 400 mg PO BID COPD 08/25/18 04/15/22 History tablet,extended release 24 hr duloxetine 30 mg capsule,delayed 30 mg PO DAILY NEUROPATHY 04/15/22 04/15/22 History release duloxetine 60 mg capsule,delayed 60 mg PO DAILY NEUROPATHY 04/15/22 04/15/22 History release lisinopril 20 2 tab PO DAILY Hypertension 04/15/22 04/15/22 History mg-hydrochlorothiazide 12.5 mg tablet metformin 500 mg tablet 500 mg PO BID Diabetes 04/15/22 04/15/22 History montelukast 10 mg tablet 10 mg PO PM Allergy symptoms 04/15/22 04/15/22 History ondansetron HCl 4 mg tablet 4 mg PO Q6HP PRN Nausea And 04/15/22 04/15/22 History Vomiting New Prescriptions to Start Prescriptions: Allergies Allergy/AdvReac Type Severity Reaction Status Date / Time penicillin
--- NOTE | 2022-04-15 13:04 | P.PN_ITS ---
[facility] Disclaimer: The information contained in this section may have been updated after the patient was seen, as this information can be updated by other users. Social History Smoking Status: Current every day smoker tobacco type: cigarettes packs per day: 1 alcohol intake: never substance use type: denies use current occupational status: disabled Travel in the last 8 weeks: None household members: family caffeine: Yes [facility] Anesthesia Checklist Patient Identification Patient Identification: Arm Band Structural Data Admitted From: Home Planned Operative Procedure/s: Exploratory Laparotomy Consent for Planned Operative Procedure(s) Verified: Yes Verified Documents: Surgical Consent and History and Physical NPO Status Verified Time NPO: 00:00 Additional verifications Anesthesia Reactions: No Airway Assessment C-Spine Mobility Assessed: Yes TMJ Mobility Assessed: Yes Dentition: Good Dentition Anesthesia Plan Anesthesia Risk discussed: Yes Anesthesia Plan: Verified ASA Class: IV (E) Anesthesia Type: General
--- NOTE | 2022-04-15 13:52 | SUR.OPER ---
4 bowel clamp covers counted verified x 2 per S.Kendall RN & C.Kathryn BUCKLE SEWER [id number]-Family updated @ this time.
--- NOTE | 2022-04-15 14:00 | HMH.PHAINT1 ---
Pharmacy Intervention Comments: MEDICATION RECONCILIATION COMPLETED ON PATIENT USING EXTERNAL FILL HISTORY FROM PHARMACY. -BERTR[facility] ADLER, SAPNAD
--- NOTE | 2022-04-15 14:09 | EXP.OP.NOTE ---
Date of procedure: 04/15/22 Pre-op Diagnosis:: Small bowel obstruction secondary to incarcerated incisional hernia Post-op Diagnosis:: Complete small bowel obstruction secondary to strangulated incisional hernia Procedure performed:: Exploratory laparotomy with release of bowel obstruction, small bowel resection with primary anastomosis, primary repair of incisional hernia. Surgeon:: Shai Ocampo MD [employer] MECHANIC:: Misha Novak Anesthesia: GETA Estimated blood loss (mL): 50 Clinical Note:: Patient is a 66-year-old female with history of home oxygen (5L) dependent COPD and diabetes.? She had previously undergone PREMA/BSO several decades ago through a relatively high Pfannenstiel incision.? She has a known chronic supraumbilical trocar site hernia from previous cholecystectomy containing bowel.? She states that several days ago on 04/13/2022 she had developed a knot in the lower abdomen.? That this had become quite tender.? She states that she has had ongoing vomiting and has been unable to keep anything down.? The area in the lower abdomen has been quite tender and sore to touch.? Due to the persistence of her symptoms she had finally presented to the emergency department this morning on 04/15/2022.? She was found to have a leukocytosis.? She had findings of severe dehydration with acute kidney injury with a BUN of 109 and creatinine of 3.2.? She underwent CT scan which reveals small bowel obstruction secondary to pelvic hernia .? Surgical consultation was obtained. Patient was seen and examined in the emergency department. She had findings of possibly strangulated incisional hernia in her suprapubic location with complete bowel obstruction. Plan was made for emergent surgical intervention. Operative findings:: Patient had a short loop of small bowel herniated through a small defect in the left suprapubic location. There was full-thickness necrosis of the loop of bowel without perforation. There was also some omentum which was strangulated within the hernia sac. She had a rather large hernia sac. She does have a supraumbilical trocar site hernia from previous cholecystectomy which is chronic and reducible. This was not disturbed during this surgery. Operative note:: Patient was taken emergently to the operating room. She was placed in a supine position. General anesthesia was induced. Wan catheter was placed. Abdomen was prepped and draped in the standard surgical fashion. Low midline laparotomy incision was made. Dissection was carried down through subcutaneous tissues. Fascia was incised. Ultimately peritoneal cavity was carefully entered. Dissection was carried out inferiorly towards the hernia. There was bowel and omentum herniated through a relatively small defect just to the left of midline. Ultimately the fascial bridge from the midline to the hernia was incised. With blunt dissection the herniated contents was dissected free from the rather large hernia sac in the suprapubic location. There was some strangulated somewhat necrotic omentum as well as a loop of small bowel with complete obstruction with some distention proximally completely decompressed distally. There was full-thickness necrosis of the very short segment loop of small bowel without perforation. Some of the extraneous peritoneum of the hernia sac and the omentum was excised. Omentum was excised using the Enseal device. The short segment of small bowel was resected dividing it proximally and distally with a GABRIELA 75 type stapling device. Small bowel mesentery was incised with the Enseal device. A [id number] small bowel anastomosis was created with a GABRIELA 75 stapling device. Small bowel enterotomy defect was closed with the TX 60 B stapling device. 3 oh Surgilon seromuscular sutures were placed at the staple line angle as well as the confluence of staple lines. The staple line was oversewn with a running locking 3-0 Surgilon. Mesenteric defect was closed with a 2-0 Vicryl. Small sandip
--- NOTE | 2022-04-15 14:27 | P.PNANES_ITS ---
[facility] Anesthesia Record Part I Anesthesia Record I Intake, IV Amount: 2,300 Estimated blood loss (mL): 50 Urine output (mL): 200 Blood Products used (#): none Blood Pressure: 150/65 SaO2: 94 Pulse Rate: 89 Respiratory Rate: 16 Temperature: 97.3 F Patient is:: Drowsy and Stable Stable to PACU at:: 14:20
[2022-04-15 14:51] LABS: Lactic Acid Follow Up (RFLX 1) 1.8 mmol/L (0.7-2.1)
[2022-04-15 15:12] LABS: Microscopic, Urine URINE MICROSCOPIC (MICROSCOPIC)
[2022-04-15 15:22] LABS: Appearance,Urine CLOUDY (Clear); Blood, Urine TRACE-I (Negative); Color,Urine YELLOW (Yellow); Glucose,Urine (UA) Negative (Negative); Ketones,Urine Negative (Negative); Leukocyte Esterase,Urine 1+ (Negative); Nitrate,Urine Negative (Negative); Protein,Urine 1+ (Negative); Specific Gravity, Urine >= 1.030 (1.005-1.030); Urobilinogen,Urine 0.2 EU/dl (0.2)
[2022-04-15 15:33] LABS: Bilirubin,Urine 1+ (Negative)
[2022-04-15 15:52] LABS: Bacteria,Urine 2+ /lpf; Squamous Epithelial Cell,Urine Occasional #/hpf (0-5)
--- NOTE | 2022-04-15 16:40 | PC.NURSE ---
Pt arrived to the floor at this time
[2022-04-16] VITALS (15 sets, daily range): BP systolic 117–156; BP diastolic 46–86; PULSE 56–100; RESP 16–20; TEMP 36.3–36.9; O2SAT 90–98; BMI 20.7
[2022-04-16 01:54] LABS: POC Glucose,Bedside 189 (70-110)
[2022-04-16 02:14] LABS: POC Glucose,Bedside 137 (70-110)
--- NOTE | 2022-04-16 05:31 | PC.NURSE ---
Pt has c/o discomfort x2 this shift. NG tube to (R) nare to low wall suction. 400 ml output this shift. Midline incision with DSG in place. C/D/I. MAHOGANY drain with 30 ml sanguineous drainage. DSG with small blood noted. BS hypoactive. VSS.Pt O2 titrated to 4.5 L O2 NC. F/C draining to bedside. Call light within reach.
[2022-04-16 06:29] LABS: POC Glucose,Bedside 145 (70-110)
[2022-04-16 06:31] LABS: Chloride 93 mmol/L (98-107); Sodium 138 mmol/L (136-145)
[2022-04-16 06:32] LABS: Potassium 3.4 mmoL/L (3.5-5.1)
[2022-04-16 06:34] LABS: Alanine Aminotransferase 12 U/L (12-78); Albumin Level 3.5 g/dl (3.5-5.0); Alkaline Phosphatase 68 U/L (38-126); Anion Gap 12.4 mEq/L (5-15); Aspartate Amino Transferase 21 U/L (14-36); Bilirubin,Total 0.5 mg/dl (0.2-1.3); Blood Urea Nitrogen 68 mg/dl (7-17); Carbon Dioxide 36 mmol/L (22.0-30.0); Creatinine Clearance Estimated 57 mL/min (50-200); Estimated Glomerular Filt Rate 63 ml/min (>60); GFR (African American) 76 ML/MIN (>60)
[2022-04-16 06:35] LABS: Albumin/Globulin Ratio 1.3 (1.1-1.8); Calcium 6.9 mg/dl (8.4-10.2); Globulin 2.7 g/dL (1.3-3.2); Glucose 167 mg/dl (74-100); Magnesium 1.8 mg/dl (1.6-2.3); Total Protein,Serum 6.2 g/dl (6.3-8.2)
[2022-04-16 06:37] LABS: Basophils % 0.3 % (0.1-2.0); Eosinophils # 0.1 K/mm3 (0.0-0.4); Eosinophils % 0.5 % (0.1-12.0); Hematocrit 43.3 % (37.0-47.0); Lymphocytes # 1.4 K/mm3 (0.7-4.5); Lymphocytes % 12.7 % (10-50); Mean Corpuscular HGB Conc 33.1 g/dL (31.8-35.4); Mean Corpuscular Hemoglobin 30.7 pg (27.0-31.2); Mean Corpuscular Volume 92.7 fl (81-99); Mean Platelet Volume 9.4 fl (7.4-10.4); Monocytes % 9.3 % (1.7-9.3); Neutrophils # 8.4 K/mm3 (1.8-7.8); Neutrophils % 77.2 % (37.0-80.0); Platelet Count 193 K/mm3 (142-424); Red Blood Count 4.67 M/mm3 (4.20-5.40); Red Cell Distribution Width 14.3 % (11.5-17.5); White Blood Count 10.9 K/mm3 (4.8-10.8)
[2022-04-16 07:02] LABS: Hemoglobin 14.3 g/dL (12.2-16.2)
--- NOTE | 2022-04-16 07:56 | EXP.ACUTE.PN ---
Subjective *Date: 04/16/22 *Time: 18:30 Interval history: Reports improvement in abdominal pain. Still uncomfortable but not as severe as yesterday. Requesting ice chips. No gas yet or bowel movement. Stable oxygen requirement at baseline O2. Afebrile, hemodynamically stable. Denies nausea. NG in place. Labs reviewed this morning, kidney function normalized. Medical Exam Vital signs and Labs for Last 24 Hours: Vital Signs Temp Pulse Pulse Resp BP BP Pulse Ox 04/16/22 06:00 73 18 129/46 L 90 L 04/16/22 04:00 80 04/16/22 00:00 80 04/15/22 20:00 80 04/16/22 06:01 81 04/16/22 06:01 84 04/16/22 06:01 94 L 04/16/22 04:00 98.2 F 85 17 129/46 L 94 L 04/16/22 02:00 79 16 117/56 L 93 L 04/16/22 00:00 97.9 F 84 17 129/55 L 95 04/15/22 22:15 97.0 F L 86 17 112/49 L 90 L 04/15/22 21:15 97.5 F L 85 16 128/46 L 95 04/15/22 20:15 98.4 F 85 16 116/48 L 91 L 04/15/22 19:15 98.4 F 84 18 115/54 L 95 04/15/22 23:08 88 04/15/22 23:08 87 04/15/22 23:08 93 L 04/15/22 18:15 98.4 F 82 16 144/66 H 96 04/15/22 17:45 98.7 F 79 17 141/63 H 96 04/15/22 17:15 98.6 F 81 18 128/63 97 04/15/22 16:45 98 F 81 19 145/53 H 94 L 04/15/22 16:15 97.9 F 80 21 165/54 H 90 L 04/15/22 16:00 98.1 F 76 21 129/61 89 L 04/15/22 15:45 98.3 F 81 20 138/65 92 L 04/15/22 15:30 98.1 F 72 19 142/65 H 96 04/15/22 17:00 92 L 04/15/22 18:49 04/15/22 16:30 86 16 124/56 L 95 04/15/22 16:20 86 14 120/53 L 94 L 04/15/22 16:10 86 14 125/64 94 L 04/15/22 16:00 84 14 122/57 L 94 L 04/15/22 15:50 84 14 125/57 L 93 L 04/15/22 15:50 14 04/15/22 15:40 84 14 123/55 L 94 L 04/15/22 15:30 85 14 133/60 95 04/15/22 15:20 88 14 125/58 L 96 04/15/22 15:10 82 14 123/57 L 95 04/15/22 15:00 85 15 123/53 L 92 L 04/15/22 15:00 17 04/15/22 14:50 89 12 137/58 L 94 L 04/15/22 14:40 91 H 16 138/63 94 L 04/15/22 14:30 88 16 141/65 H 95 04/15/22 14:20 97.3 F L 87 16 147/71 H 94 L 04/15/22 14:54 12 04/15/22 11:46 91 H 16 101/41 L 96 04/15/22 11:30 70 16 102/43 L 96 04/15/22 11:55 98.8 F 91 H 16 101/41 L 04/15/22 11:15 87 18 101/46 L 97 04/15/22 11:00 74 18 112/43 L 97 04/15/22 10:31 87 16 118/96 H 95 04/15/22 10:07 78 16 101/51 L 93 L 04/15/22 10:00 100 H 18 125/50 L 93 L 04/15/22 09:50 91 H 22 124/63 93 L 04/15/22 09:31 87 19 112/67 93 L 04/15/22 09:30 92 H 16 112/67 93 L 04/15/22 09:00 89 17 124/58 L 93 L 04/15/22 08:31 74 15 120/63 92 L 04/15/22 08:14 92 L 04/15/22 08:00 86 101/58 L 92 L 04/15/22 14:28 97.3 F L 89 16 150/65 H FiO2 04/16/22 06:00 04/16/22 04:00 04/16/22 00:00 04/15/22 20:00 04/16/22 06:01 04/16/22 06:01 04/16/22 06:01 04/16/22 04:00 04/16/22 02:00 04/16/22 00:00 04/15/22 22:15 04/15/22 21:15 04/15/22 20:15 04/15/22 19:15 04/15/22 23:08 04/15/22 23:08 04/15/22 23:08 04/15/22 18:15 04/15/22 17:45 04/15/22 17:15 04/15/22 16:45 04/15/22 16:15 04/15/22 16:00 04/15/22 15:45 04/15/22 15:30 04/15/22 17:00 04/15/22 18:49 28 04/15/22 16:30 04/15/22 16:20 04/15/22 16:10 04/15/22 16:00 04/15/22 15:50 04/15/22 15:50 04/15/22 15:40 04/15/22 15:30 04/15/22 15:20 04/15/22 15:10 04/15/22 15:00 04/15/22 15:00 04/15/22 14:50 04/15/22 14:40 04/15/22 14:30 04/15/22 14:20 04/15/22 14:54 04/15/22 11:46 04/15/22 11:30 04/15/22 11:55 04/15/22 11:15 04/15/22 11:00 04/15/22 10:31 04/15/22 10:07 04/15/22 10:00 04/15/22 09:50 04/15/22 09:31 04/15/22 09:30 04/15/22 09:00 04/15/22 08:31 04/15/22
[2022-04-16 07:57] LABS: POC Glucose,Bedside 180 (70-110)
[2022-04-16 09:02] LABS: Theophylline < 1.0 ug/ml (10-20)
--- NOTE | 2022-04-16 10:56 | P.PN_ITS ---
Subjective Patient reports: feels better Narrative: Overall patient does feel better. She is more talkative and animated. She strongly wishes to go home as soon as possible. White blood cell count has essentially normalized. BUN/creatinine has gone from 109/3.2 to 68/0.9. She has 550 cc out of the NG tube. Exam Data for Last 24 hours Vital signs and Labs for Last 24 Hours: Temp Pulse Resp BP Pulse Ox FiO2 98.3 F 81 18 129/46 L 94 L 28 04/16/22 08:00 04/16/22 06:01 04/16/22 06:00 04/16/22 06:00 04/16/22 06:01 04/15/22 18:49 Laboratory Results - last 24 hr 04/15/22 12:10: Urine Color Yellow, Urine Appearance Cloudy, Urine pH 5.0, Ur Specific [place] >= 1.030, Urine Protein 1+, Urine Glucose (UA) Negative, Urine Ketones Negative, Urine Blood Trace-i, Urine Nitrate Negative, Urine Bilirubin 1+ A, Urine Urobilinogen 0.2, Ur Leukocyte Esterase 1+ A, Urine RBC 3-5, Urine WBC 5-10, Ur Squamous Epith Cells Occasional, Urine Bacteria 2+ 04/15/22 12:11: POC Glucose 274 H 04/15/22 14:30: Lactate 1.8 04/15/22 20:19: POC Glucose 189 H 04/16/22 01:53: POC Glucose 137 H 04/16/22 05:31: POC Glucose 145 H 04/16/22 05:45: Theophylline < 1.0 L 04/16/22 05:45: WBC 10.9 H D, RBC 4.67, Hgb 14.3 D, Hct 43.3, MCV 92.7, MCH 30.7, MCHC 33.1, RDW 14.3, Plt Count 193 D, MPV 9.4, Neut % (Auto) 77.2, Lymph % (Auto) 12.7, [place] % (Auto) 9.3, Eos % (Auto) 0.5, Baso % (Auto) 0.3, Neut # (Auto) 8.4 H, Lymph # (Auto) 1.4, [place] # (Auto) 1.0, Eos # (Auto) 0.1, Baso # (Auto) 0.0 04/16/22 05:45: Sodium 138, Potassium 3.4 L D, Chloride 93 L, Carbon Dioxide 36 H, Anion Gap 12.4, BUN 68 H D, Creatinine 0.90 D, Estimated Creat Clear 57, Estimated GFR 63, Est GFR ( Amer) 76 D, Glucose 167 H D, Calcium 6.9 L, Magnesium 1.8, Total Bilirubin 0.5, AST 21, ALT 12 D, Alkaline Phosphatase 68, Total Protein 6.2 L, Albumin 3.5 D, Globulin 2.7, Albumin/Globulin Ratio 1.3 04/16/22 07:47: POC Glucose 180 H I & O for Last 24 hours: Intake & Output 04/13/22 04/14/22 04/15/22 04/16/22 11:59 11:59 11:59 11:59 Intake Total 1999 / 1999 4122 / 4122 Output Total 750 / 750 2835 / 2835 Balance 1250 / 1250 1287 / 1287 Weight 160 lb 140 lb 3.424 oz *Routine Abdominal Exam Abdominal: Present soft Comments: Dressing dry. Some serosanguineous drainage in the MAHOGANY drain and around the drain site dressing. Progress Note: A&P Assessment and plan (1) Complete obstruction of small intestine: Status: Acute Assessment and plan: Continue NG tube to continuous low wall suction. May DC Wan catheter if okay with hospitalist service. Patient may have some ice chips. (2) Incarcerated hernia: Status: Acute (3) Acute dehydration: Status: Acute (4) SARAH (acute kidney injury): Status: Acute (5) Junctional rhythm: Status: Acute (6) Tobacco use disorder: Status: Acute (7) Diabetes mellitus with hyperglycemia: Status: Acute (8) Chronic hypoxemic respiratory failure: Status: Acute (9) SIRS (systemic inflammatory response syndrome): Status: Acute
--- NOTE | 2022-04-16 15:57 | P.PNANES_ITS ---
[facility] Anesthesia Record Part II Anesthesia Record Part II Discharge Time: 16:30 Destination: Medical Surgical Department PACU nurse assessment reviewed?: Yes Patient Condition:: Good Anesthesia Complications:: None Swallowing reflex intact?: Yes Cyanosis?: No Blood Pressure: 124/86 Pulse Rate: 56 Temperature: 97.3 F Mental Status: Alert & Oriented Pain level:: 0 Nausea and/or vomitting:: None Intake, IV Amount: 0
[2022-04-16 16:28] LABS: POC Glucose,Bedside 174 (70-110)
--- NOTE | 2022-04-16 19:46 | PC.NURSE ---
Patient able to tolerate ice chips but not able to tolerate swallowing cardizen capsules. NG had to be placed back to suction about 20-30 minutes after administering cardizem. Patient shows pvc's on monitor, not frequent and singular. Dr. Pierce notified. VS remain stable and patient remains on 5LNC with oxygen saturations between 91-93%. Abdomen is soft, tender, bowel sounds hypoactive. Patient states hernia is at top of midline incision site. Area is soft and non tender. Midline incision clean dry and intact, MAHOGANY drain 40 ml out on shift.
--- NOTE | 2022-04-16 20:00 | PC.NURSE ---
upon assessment Pt NG tube at 25 cm. tube advanced to 58 cm at the nare. KUB ordered by Maxi SEVILLA. radiology made aware. suction paused at this time.
--- NOTE | 2022-04-16 20:01 | XR_ITS ---
PROCEDURE INFORMATION: Exam: XR Abdomen Exam date and time: 04/16/2022 8:05 PM Age: 66 years old Clinical indication: Device placement; Gi device; Nasogastric tube; Additional info: Ng tube placement TECHNIQUE: Imaging protocol: Radiologic exam of the abdomen. Views: Frontal supine view of the abdomen. 1 View. COMPARISON: CT ABDOMEN PELVIS WO CON 04/15/2022 9:13 AM FINDINGS: Tubes, catheters and devices: Enteric tube tip terminating within the left upper quadrant overlying the expected location of the stomach. Gastrointestinal tract: Normal. No bowel dilation. Bones/joints: Degenerative changes of the spine. No fracture. IMPRESSION: Enteric tube tip terminating within the left upper quadrant overlying the expected location of the stomach.
--- NOTE | 2022-04-16 22:33 | PC.NURSE ---
Addendum entered by Francheska Roca RN 04/16/22 22:33: Will attcach to low wall suction at this time Original Note: Spoke with Maxi SEVILLA. OK to use NG tube based off KUB
[2022-04-17] VITALS (11 sets, daily range): BP systolic 125–156; BP diastolic 52–67; PULSE 69–100; RESP 18–20; TEMP 36.8–37.1; O2SAT 93–98; BMI 23.1
--- NOTE | 2022-04-17 01:14 | XR_ITS ---
PROCEDURE INFORMATION: Exam: XR Abdomen Exam date and time: 04/17/2022 1:28 AM Age: 66 years old Clinical indication: Device placement; Gi device; Nasogastric tube; Additional info: Ng tube TECHNIQUE: Imaging protocol: Radiologic exam of the abdomen. Views: Frontal supine view of the abdomen. 1 View. COMPARISON: CR XR KUB 04/16/2022 8:05 PM FINDINGS: Tubes, catheters and devices: NG tube in the stomach Gastrointestinal tract: Nonspecific bowel gas pattern Bones/joints: Unremarkable. IMPRESSION: NG tube in the stomach.
--- NOTE | 2022-04-17 04:17 | PC.NURSE ---
Pt A&OX4. 14 spanish NG tube 62 cm at right nare, low wall suction in place. Placement confirmed with auscultation and XR. 300 ml gastric drainage this shift. Midline dressing CDI. MAHOGANY drain to LLQ in place, 5 ml sanguineous drainage this shift. Abdomen soft, tender. BS hypoactive. Pt reports excessive flatulence. Wan catheter in place draining clear, yellow urine. Pt remains on 5L NC, O2 sats >90%. NSR with PVC's on tele. 20GIV in LAC with LR infusing @75 ml/hr.
[2022-04-17 06:03] LABS: POC Glucose,Bedside 143 (70-110)
--- NOTE | 2022-04-17 06:55 | P.PN_ITS ---
Subjective Patient reports: flatus and no bowel movement Exam Data for Last 24 hours Vital signs and Labs for Last 24 Hours: Temp Pulse Resp BP Pulse Ox FiO2 98.8 F 100 H 18 134/58 L 93 L 28 04/17/22 03:56 04/17/22 04:00 04/17/22 03:56 04/17/22 03:56 04/17/22 03:56 04/15/22 18:49 Laboratory Results - last 24 hr 04/16/22 05:45: Theophylline < 1.0 L 04/16/22 05:45: WBC 10.9 H D, RBC 4.67, Hgb 14.3 D, Hct 43.3, MCV 92.7, MCH 30.7, MCHC 33.1, RDW 14.3, Plt Count 193 D, MPV 9.4, Neut % (Auto) 77.2, Lymph % (Auto) 12.7, [place] % (Auto) 9.3, Eos % (Auto) 0.5, Baso % (Auto) 0.3, Neut # (Auto) 8.4 H, Lymph # (Auto) 1.4, [place] # (Auto) 1.0, Eos # (Auto) 0.1, Baso # (Auto) 0.0 04/16/22 07:47: POC Glucose 180 H 04/16/22 13:29: POC Glucose 174 H 04/17/22 01:56: POC Glucose 143 H I & O for Last 24 hours: Intake & Output 04/14/22 04/15/22 04/16/22 04/17/22 11:59 11:59 11:59 11:59 Intake Total 1999 / 1999 4122 / 4122 2689 / 2689 Output Total 750 / 750 2835 / 2835 2325 / 2325 Balance 1250 / 1250 1287 / 1287 364 / 364 Weight 160 lb 140 lb 3.424 oz 156 lb 6 oz Microbiology Reports for the Last 24 Hours: Microbiology 04/15/22 12:10 Urine,Clean Catch Urine Culture - Preliminary NO GROWTH AFTER 24 HOURS Constitutional Constitutional: no acute distress *Routine Respiratory Exam Respiratory: Absent respiratory distress *Routine Cardiovascular Exam Comments: Minimally tachycardic *Routine Abdominal Exam Comments: Incision healing without sign of infection. Minimal Cayetano-Hodges drainage output. Progress Note: A&P Assessment and plan (1) Complete obstruction of small intestine: Status: Acute Assessment and plan: Overall, doing well status post partial small bowel resection Increase ambulation Nasogastric tube to drain bag (2) Incarcerated hernia: Status: Acute (3) Acute dehydration: Status: Acute (4) SARAH (acute kidney injury): Status: Acute (5) Junctional rhythm: Status: Acute (6) Tobacco use disorder: Status: Acute (7) Diabetes mellitus with hyperglycemia: Status: Acute (8) Chronic hypoxemic respiratory failure: Status: Acute (9) SIRS (systemic inflammatory response syndrome): Status: Acute
[2022-04-17 07:23] LABS: Sodium 140 mmol/L (136-145)
[2022-04-17 07:26] LABS: Blood Urea Nitrogen 34 mg/dl (7-17); Calcium 7.9 mg/dl (8.4-10.2); Carbon Dioxide 35 mmol/L (22.0-30.0); Creatinine Clearance Estimated 64 mL/min (50-200); Estimated Glomerular Filt Rate 124 ml/min (>60); GFR (African American) 150 ML/MIN (>60); Glucose 169 mg/dl (74-100)
[2022-04-17 07:30] LABS: Basophils % 0.4 % (0.1-2.0); Eosinophils % 0.1 % (0.1-12.0); Hematocrit 38.6 % (37.0-47.0); Hemoglobin 12.5 g/dL (12.2-16.2); Lymphocytes # 1.6 K/mm3 (0.7-4.5); Lymphocytes % 13.6 % (10-50); Mean Corpuscular HGB Conc 32.4 g/dL (31.8-35.4); Mean Corpuscular Hemoglobin 30.4 pg (27.0-31.2); Mean Corpuscular Volume 93.7 fl (81-99); Mean Platelet Volume 9.6 fl (7.4-10.4); Monocytes # 0.9 K/mm3 (0.1-1.0); Monocytes % 7.9 % (1.7-9.3); Neutrophils # 9.3 K/mm3 (1.8-7.8); Neutrophils % 78.1 % (37.0-80.0); Platelet Count 199 K/mm3 (142-424); Red Blood Count 4.12 M/mm3 (4.20-5.40); Red Cell Distribution Width 14.2 % (11.5-17.5); White Blood Count 11.9 K/mm3 (4.8-10.8)
[2022-04-17 07:45] LABS: Chloride 96 mmol/L (98-107)
--- NOTE | 2022-04-17 11:46 | EXP.ACUTE.PN ---
Subjective *Date: 04/17/22 *Time: 20:13 Interval history: Did well overnight. No emesis. Abdominal pain gradually improving. States she is having significant flatus. No significant drainage from NG. Denies chest pain, increase shortness of breath from baseline, confusion. Wanting to ambulate. Will remove Wan today Medical Exam Vital signs and Labs for Last 24 Hours: Vital Signs Temp Pulse Pulse Resp BP BP Pulse Ox 04/17/22 11:00 78 04/17/22 11:00 80 04/17/22 11:00 98 04/17/22 08:00 98.5 F 82 18 136/53 L 93 L 04/17/22 05:40 85 04/17/22 05:40 85 04/17/22 05:40 95 04/17/22 04:00 100 H 04/17/22 00:00 90 04/16/22 20:00 80 04/17/22 03:56 98.8 F 88 18 134/58 L 93 L 04/17/22 00:00 98.4 F 89 18 136/52 L 95 04/16/22 22:45 85 04/16/22 22:45 85 04/16/22 20:00 97.6 F 90 18 133/52 L 96 04/16/22 18:09 89 04/16/22 18:09 83 04/16/22 18:09 95 04/16/22 16:00 80 04/16/22 16:00 98.5 F 88 20 124/58 L 94 L 04/16/22 14:00 98.4 F 04/16/22 12:00 90 04/16/22 12:00 95 H 18 156/49 H 98 04/16/22 16:00 97.3 F L 56 L 124/86 Intake and Output 04/16/22 04/17/22 04/17/22 23:59 07:59 15:59 Intake Total 283 / 2943 1568 / 1568 Output Total 1210 / 3490 1085 / 1085 Balance -927 / -547 483 / 483 Intake: Intake, Oral Amount 700 / 700 Intake, Total IV Amount 283 / 2943 868 / 868 Ringers Solution,Lactated 1,000 283 / 1843 868 / 868 ml @ 75 mls/hr IV .[id number] [facility] Rx#:[id number] Output: Output, Urine Amount (Catheter) 1200 / 3020 480 / 480 Wan 1200 / 3020 480 / 480 Output, Gastric Drainage Amount 600 / 600 Right Nare 600 / 600 Output, Drainage Amount Abdomen Other: Number of Unmeasured Voids 0 Weight 70.931 kg Patient Weight 04/17/22 23:59 Weight 70.931 kg Laboratory Results - last 24 hr 04/16/22 13:29: POC Glucose 174 H 04/17/22 01:56: POC Glucose 143 H 04/17/22 06:17: WBC 11.9 H, RBC 4.12 L, Hgb 12.5, Hct 38.6, MCV 93.7, MCH 30.4, MCHC 32.4, RDW 14.2, Plt Count 199, MPV 9.6, Neut % (Auto) 78.1, Lymph % (Auto) 13.6, [place] % (Auto) 7.9, Eos % (Auto) 0.1, Baso % (Auto) 0.4, Neut # (Auto) 9.3 H, Lymph # (Auto) 1.6, [place] # (Auto) 0.9, Eos # (Auto) 0.0, Baso # (Auto) 0.0 04/17/22 06:17: Sodium 140, Potassium 3.0 L, Chloride 96 L, Carbon Dioxide 35 H, Anion Gap 12.0, BUN 34 H D, Creatinine 0.50 L D, Estimated Creat Clear 64, Estimated GFR 124, Est GFR ( Amer) 150 D, Glucose 169 H, Calcium 7.9 L I & O for Labs for Last 24 Hours: Intake & Output 04/14/22 04/15/22 04/16/22 04/17/22 23:59 23:59 23:59 23:59 Intake Total 4300 / 4300 2943 / 2943 1568 / 1568 Output Total 1815 / 2555 3010 / 3490 1085 / 1085 Balance 2485 / 1745 -67 / -547 483 / 483 Weight 72.575 kg 63.6 kg 70.931 kg Microbiology Reports for the Last 24 Hours: Microbiology 04/15/22 12:10 Urine,Clean Catch Urine Culture - Preliminary Constitutional: Present no acute distress, average body habitus and chronically ill appearing Head: Present atraumatic and normocephalic ENT: Present normal exam Neck: Present normal inspection Respiratory: Present prolonged expiratory phase, wheezes, distant breath sounds and normal respiratory effort; Absent accessory muscle use, rhonchi or crackles Cardiac: Present Reg Rate and Rhythm GI: Present soft, tenderness (Interval improvement in tenderness, tender over left lower abdomen.) and diminished bowel sounds; Absent distention Comments:: Umbilical hernia this reducible Extremities: Present normal inspection and full ROM Skin: Present intact; Absent erythema Neuro: Present Grossly Intact, alert, awake, oriented x 3 and moves all extremities Assessment and Plan *Assessment and plan (1) Incarcerated hernia: Status: Acute Categor
[2022-04-17 19:26] LABS: POC Glucose,Bedside 140 (70-110)
[2022-04-17 19:26] LABS: POC Glucose,Bedside 159 (70-110)
[2022-04-17 19:26] LABS: POC Glucose,Bedside 199 (70-110)
[2022-04-17 19:26] LABS: POC Glucose,Bedside 168 (70-110)
--- NOTE | 2022-04-17 20:00 | PC.NURSE ---
Residual for NG tube at [address] Wooten notified of residual and tolerating drainage to catheter bag. Told to recheck residual in 4 hours and if little residual to pull NG tube. NG tube pulled at 1806 due to 30 ml residual. Patient stating she is still passing gas but no bowel movement. Catheter D/c'd at 1030, patient has been able to urinate since.
[2022-04-17 21:55] LABS: POC Glucose,Bedside 145 (70-110)
[2022-04-18] VITALS (7 sets, daily range): BP systolic 124–145; BP diastolic 60–69; PULSE 80–108; RESP 18–20; TEMP 36.4–37.1; O2SAT 91–95; BMI 24.0
[2022-04-18 01:58] LABS: POC Glucose,Bedside 130 (70-110)
[2022-04-18 06:28] LABS: Chloride 92 mmol/L (98-107); Potassium 3.1 mmoL/L (3.5-5.1); Sodium 135 mmol/L (136-145)
[2022-04-18 06:30] LABS: Alanine Aminotransferase 12 U/L (12-78); Aspartate Amino Transferase 20 U/L (14-36); Blood Urea Nitrogen 17 mg/dl (7-17); Creatinine Clearance Estimated 64 mL/min (50-200); Estimated Glomerular Filt Rate 161 ml/min (>60); GFR (African American) 194 ML/MIN (>60)
[2022-04-18 06:31] LABS: Albumin Level 3.4 g/dl (3.5-5.0); Albumin/Globulin Ratio 1.3 (1.1-1.8); Alkaline Phosphatase 70 U/L (38-126); Anion Gap 12.1 mEq/L (5-15); Bilirubin,Total 0.8 mg/dl (0.2-1.3); Calcium 8.3 mg/dl (8.4-10.2); Carbon Dioxide 34 mmol/L (22.0-30.0); Globulin 2.7 g/dL (1.3-3.2); Glucose 173 mg/dl (74-100); Total Protein,Serum 6.1 g/dl (6.3-8.2)
[2022-04-18 06:33] LABS: Basophils # 0.1 K/mm3 (0-0.2); Basophils % 0.6 % (0.1-2.0); Eosinophils # 0.2 K/mm3 (0.0-0.4); Eosinophils % 1.4 % (0.1-12.0); Hematocrit 40.6 % (37.0-47.0); Lymphocytes # 1.7 K/mm3 (0.7-4.5); Lymphocytes % 16.2 % (10-50); Mean Corpuscular Hemoglobin 29.8 pg (27.0-31.2); Mean Corpuscular Volume 93.4 fl (81-99); Mean Platelet Volume 8.9 fl (7.4-10.4); Monocytes # 0.8 K/mm3 (0.1-1.0); Monocytes % 7.9 % (1.7-9.3); Neutrophils # 7.9 K/mm3 (1.8-7.8); Neutrophils % 73.9 % (37.0-80.0); Platelet Count 211 K/mm3 (142-424); Red Blood Count 4.35 M/mm3 (4.20-5.40); Red Cell Distribution Width 14.1 % (11.5-17.5); White Blood Count 10.6 K/mm3 (4.8-10.8)
--- NOTE | 2022-04-18 06:33 | PC.NURSE ---
Pt A&OX4. She has had no complaints t/o the night. She remains on 5L NC, and O2 sats remain around 90%. Crackles noted. Abdomen soft and slightly tender with palpation. Midline incision dressing noted to have very scant amount of serosanguineous drainage this morning, dressing was changed. incision site with no signs of infection. MAHOGANY drain to LLQ, approx 1-2 ml sanguineous drainage noted this shift.
[2022-04-18 07:11] LABS: Phosphorous 1.9 mg/dl (2.5-4.5)
--- NOTE | 2022-04-18 07:12 | PC.NURSE ---
Critical phosphorus of 1.[address] Pierce
--- NOTE | 2022-04-18 07:51 | P.PN_ITS ---
Subjective *Date: 04/18/22 *Time: 07:51 Medical Exam Vital signs and Labs for Last 24 Hours: Vital Signs Temp Pulse Pulse Resp BP Pulse Ox 04/18/22 05:20 85 04/18/22 05:20 87 04/18/22 05:20 91 L 04/18/22 04:00 80 04/18/22 00:00 90 04/17/22 20:00 90 04/18/22 00:00 98.6 F 89 20 124/63 93 L 04/17/22 20:00 98.6 F 83 20 125/59 L 94 L 04/17/22 23:49 79 04/17/22 23:49 84 04/17/22 23:49 95 04/17/22 17:50 80 04/17/22 17:50 80 04/17/22 17:50 95 04/17/22 12:00 70 04/17/22 16:00 80 04/17/22 16:00 98.3 F 69 20 156/67 H 95 04/17/22 12:00 98.7 F 79 18 144/62 H 96 04/17/22 08:00 80 04/17/22 11:00 78 04/17/22 11:00 80 04/17/22 11:00 98 04/17/22 08:00 98.5 F 82 18 136/53 L 93 L Intake and Output 04/17/22 04/17/22 04/18/22 15:59 23:59 07:59 Intake Total 120 / 1688 Output Total 250 / 1335 Balance -130 / 353 Intake: Intake, Oral Amount 120 / 820 Output: Output, Urine Amount 250 / 250 Other: Number of Bowel Movements 1 Weight 70.9 kg Laboratory Results - last 24 hr 04/16/22 22:35: POC Glucose 199 H 04/17/22 05:47: POC Glucose 159 H 04/17/22 09:30: POC Glucose 168 H 04/17/22 13:55: POC Glucose 140 H 04/17/22 21:47: POC Glucose 145 H 04/18/22 01:51: POC Glucose 130 H 04/18/22 06:00: WBC 10.6, RBC 4.35, Hgb 13.0, Hct 40.6, MCV 93.4, MCH 29.8, MCHC 32.0, RDW 14.1, Plt Count 211, MPV 8.9, Neut % (Auto) 73.9, Lymph % (Auto) 16.2, [place] % (Auto) 7.9, Eos % (Auto) 1.4, Baso % (Auto) 0.6, Neut # (Auto) 7.9 H, Lymph # (Auto) 1.7, [place] # (Auto) 0.8, Eos # (Auto) 0.2, Baso # (Auto) 0.1 04/18/22 06:00: Sodium 135 L, Potassium 3.1 L, Chloride 92 L, Carbon Dioxide 34 H, Anion Gap 12.1, BUN 17 D, Creatinine 0.40 L, Estimated Creat Clear 64, Estimated GFR 161, Est GFR ( Amer) 194 D, Glucose 173 H, Calcium 8.3 L, Phosphorus 1.9 L, Total Bilirubin 0.8, AST 20, ALT 12, Alkaline Phosphatase 70, Total Protein 6.1 L, Albumin 3.4 L, Globulin 2.7, Albumin/Globulin Ratio 1.3 I & O for Labs for Last 24 Hours: Intake & Output 04/15/22 04/16/22 04/17/22 04/18/22 23:59 23:59 23:59 23:59 Intake Total 4300 / 4300 2943 / 2943 1688 / 1688 Output Total 1815 / 2555 3010 / 3490 1335 / 1335 Balance 2485 / 1745 -67 / -547 353 / 353 Weight 72.575 kg 63.6 kg 70.9 kg Microbiology Reports for the Last 24 Hours: Microbiology 04/15/22 18:10 Blood Blood Culture - Preliminary NO GROWTH AFTER 48 HOURS 04/15/22 18:10 Blood Blood Culture - Preliminary NO GROWTH AFTER 48 HOURS 04/15/22 12:10 Urine,Clean Catch Urine Culture - Preliminary
--- NOTE | 2022-04-18 08:39 | EXP.SURG.PN ---
Subjective Patient reports: no new complaints, feels better, flatus and bowel movement Narrative: NG removed yesterday. No nausea or vomiting. Exam Data for Last 24 hours Vital signs and Labs for Last 24 Hours: Temp Pulse Resp BP Pulse Ox FiO2 98.7 F 85 18 142/60 H 91 L 28 04/18/22 04:00 04/18/22 05:20 04/18/22 04:00 04/18/22 04:00 04/18/22 05:20 04/15/22 18:49 Laboratory Results - last 24 hr 04/16/22 22:35: POC Glucose 199 H 04/17/22 05:47: POC Glucose 159 H 04/17/22 09:30: POC Glucose 168 H 04/17/22 13:55: POC Glucose 140 H 04/17/22 21:47: POC Glucose 145 H 04/18/22 01:51: POC Glucose 130 H 04/18/22 06:00: WBC 10.6, RBC 4.35, Hgb 13.0, Hct 40.6, MCV 93.4, MCH 29.8, MCHC 32.0, RDW 14.1, Plt Count 211, MPV 8.9, Neut % (Auto) 73.9, Lymph % (Auto) 16.2, [place] % (Auto) 7.9, Eos % (Auto) 1.4, Baso % (Auto) 0.6, Neut # (Auto) 7.9 H, Lymph # (Auto) 1.7, [place] # (Auto) 0.8, Eos # (Auto) 0.2, Baso # (Auto) 0.1 04/18/22 06:00: Sodium 135 L, Potassium 3.1 L, Chloride 92 L, Carbon Dioxide 34 H, Anion Gap 12.1, BUN 17 D, Creatinine 0.40 L, Estimated Creat Clear 64, Estimated GFR 161, Est GFR ( Amer) 194 D, Glucose 173 H, Calcium 8.3 L, Phosphorus 1.9 L, Total Bilirubin 0.8, AST 20, ALT 12, Alkaline Phosphatase 70, Total Protein 6.1 L, Albumin 3.4 L, Globulin 2.7, Albumin/Globulin Ratio 1.3 I & O for Last 24 hours: Intake & Output 04/15/22 04/16/22 04/17/22 04/18/22 11:59 11:59 11:59 11:59 Intake Total 1999 / 1999 4122 / 4122 2689 / 2689 120 / 120 Output Total 750 / 750 2835 / 2835 2325 / 2325 1550 / 1550 Balance 1250 / 1250 1287 / 1287 364 / 364 -1430 / -1430 Weight 160 lb 140 lb 3.424 oz 156 lb 6 oz 162 lb 9.6 oz Microbiology Reports for the Last 24 Hours: Microbiology 04/15/22 18:10 Blood Blood Culture - Preliminary NO GROWTH AFTER 48 HOURS 04/15/22 18:10 Blood Blood Culture - Preliminary NO GROWTH AFTER 48 HOURS 04/15/22 12:10 Urine,Clean Catch Urine Culture - Preliminary Constitutional Constitutional: no acute distress *Routine Respiratory Exam Respiratory: Absent respiratory distress *Routine Cardiovascular Exam Cardiovascular: Absent tachycardia *Routine Abdominal Exam Abdominal: Present soft Comments: Incision healing without sign of infection Progress Note: A&P Assessment and plan (1) Incarcerated hernia: Status: Acute Assessment and plan: Overall, doing very well postoperative day 3 status post partial small bowel resection/hernia repair. Full liquid diet without carbonation Remove Cayetano-Hodges drain Likely discharge soon with close outpatient follow-up
[2022-04-18 09:36] LABS: POC Glucose,Bedside 205 (70-110)
[2022-04-18 11:46] LABS: POC Glucose,Bedside 264 (70-110)
--- NOTE | 2022-04-18 14:55 | PC.NURSE ---
Spoke with Dr. Wooten about taking out MAHOGANY drain. He stated to pulled drain, and cut stitches if any are present. Place 4x4 gauze pad over site and place tapr or tegaderm to hold in place.
--- NOTE | 2022-04-18 15:15 | EXP.DC.SUM ---
General Admission date:: 04/15/22 Discharge date: 04/18/22 HPI HPI HPI: Ms. Landers is a 66-year-old female with history of COPD (5 L), diabetes, tobacco use disorder (continues to smoke daily). She presented to the ER?with 2 days of vomiting and abdominal pain. Has not had a bowel movement in 1 to 2 days per her report. Been unable to keep anything down. Was brought to the hospital via EMS due to weakness and abdominal pain. Noted to have brown emesis during transport. She has had a new bulge in her abdomen in her left lower quadrant for the past 2 days per her report. This area has been tender to touch. Concern for incarcerated hernia. Evaluated by surgery in the ER. Labs in the ER showed leukocytosis, tachycardia, meeting criteria for SIRS. Also found to have significant dehydration and SARAH. CT of her abdomen revealed small bowel obstruction secondary to pelvic hernia. Taken from the ER to surgery. Medicine consulted for admission. On my evaluation, she denies any diarrhea, fever. Complains of being thirsty. Has had decreased urine output. Seen both before and after surgery. States she is feeling a little better after surgery. Stable on baseline oxygen. Of note, history of multiple abdominal surgeries including PREMA/BSO, cholecystectomy. Chronic umbilical hernia with no history of obstruction. Hospital Course Hospital Course Hospital Course: 66-year-old female with end-stage COPD and history of umbilical hernia, presents with obstructing lower abdominal hernia.? Incarcerated small bowel.? Surgery consulted, taken to the OR from the ER.? Status post partial resection with end-to-end anastomosis.? Problems addressed as follows: Bowel obstruction incarcerated hernia Necrotic small bowel -Surgery consulted, appreciate their recommendations.? Taken to surgery for resection of necrotic portion of small bowel with end-to-end anastomosis. Tolerated procedure well. NG was placed to decompress belly. Within 24 hours she was passing gas. Advance diet. Patient was initially started on Invanz due to SIRS criteria but no overt sign of infection was noted. Cultures obtained with no growth. Discontinued antibiotics at discharge. Urine culture obtained on admission but did not show any growth. She was tolerating p.o. intake, MAHOGANY drain was out of surgical wound, pain stable, meeting discharge criteria home. Having bowel movements for more than 48 hours prior to discharge. SARAH -Secondary to dehydration. Improved to baseline prior to discharge. Tolerating good p.o. intake. End-stage COPD -Continue supplemental oxygen during admission. On baseline 5 L at discharge. Continue duo nebs every 6 hours. Resume theophylline at discharge. Initiated on Trelegy, provided with inhaler. Continue montelukast. Diabetes -Sliding scale insulin with fingersticks every 6 hours. Resumed metformin when tolerating p.o. intake Stable for discharge home. Plan for close follow-up with surgery in the outpatient setting. Exam Data for Last 24 hours Vital signs and Labs for Last 24 Hours: Temp Pulse Resp BP Pulse Ox FiO2 97.7 F 108 H 20 145/69 H 93 L 28 04/18/22 12:00 04/18/22 12:00 04/18/22 12:00 04/18/22 12:00 04/18/22 12:00 04/15/22 18:49 Laboratory Results - last 24 hr 04/15/22 12:10: Urine Color Yellow, Urine Appearance Cloudy, Urine pH 5.0, Ur Specific [place] >= 1.030, Urine Protein 1+, Urine Glucose (UA) Negative, Urine Ketones Negative, Urine Blood Trace-i, Urine Nitrate Negative, Urine Bilirubin 1+ A, Urine Urobilinogen 0.2, Ur Leukocyte Esterase 1+ A, Urine RBC 3-5, Urine WBC 5-10, Ur Squamous Epith Cells Occasional, Urine Bacteria 2+ 04/16/22 22:35: POC Glucose 199 H 04/17/22 05:47: POC Glucose 159 H 04/17/22 09:30: POC Glucose 168 H 04/17/22 13:55: POC Glucose 140 H 04/17/22 21:47: POC Glucose 145 H 04/18/22 01:51: POC Glucose 130 H 04/18/22 06:00: WBC 10.6, RBC 4.35, Hgb 13.0, Hct 40.6, MCV 93.4, MCH 29.8, MC
--- NOTE | 2022-04-18 15:26 | PC.NURSE ---
Called Care management to get tru to get home o2 delivered.
--- NOTE | 2022-04-18 16:00 | PC.NURSE ---
Took MAHOGANY drain out and placed sterile 4x4 and tegaderm in place.
--- NOTE | 2022-04-18 16:43 | HMH.PHAINT1 ---
Pharmacy Intervention Comments: Met with patient and niece at bedside to discuss discharge medications. Counseled on new medications and potential adverse effects. Patient and niece verbalized understanding of the information provided and had no questions or concerns at this time.
--- NOTE | 2022-04-21 15:05 | CARE MANAGER ---
Left message for post-discharge phone interview.
== END 2022-04-18 16:30 | disposition home or self-care (01) | DRG 330 ==
LOC: ER 10:49 → SDC 11:52 → 2ND 11:54
PROVIDERS: Surgery; Admitting Provider Internal Medicine Adolescent Medicine; Emergency Provider Emergency Medicine; Visit Provider Internal Medicine Adolescent Medicine
PROC: (CPT 49000; principal; 2022-04-15 12:00)
DX: K43.1 Incisional hernia with gangrene (principal); J96.11 Chronic respiratory failure with hypoxia; N17.9 Acute kidney failure, unspecified; E86.0 Dehydration; E11.65 Type 2 diabetes mellitus with hyperglycemia; F17.200 Nicotine dependence, unspecified, uncomplicated; Z99.81 Dependence on supplemental oxygen
CPT/HCPCS: 44120 ×2; 49561; 36415; 71045; 74018; 74176; 80048; 80053; 80198; 81001; 82962; 83605; 83690; 83735; 84100; 85007; 85025; 87040; 87086; 87088; 88302; 88307; 93005; 94640; 94760; 94761; 99285; C9290; C9803; J0330; J1335; J2405; U0003; U0005

== ENCOUNTER → 2022-05-01 10:33 | Outpatient (CLI) | payer MEDICARE, SELFPAY ==
[2022-05-01 10:52] LABS: Basophils # 0.1 K/mm3 (0-0.2); Basophils % 0.9 % (0.1-2.0); Eosinophils % 0.3 % (0.1-12.0); Hematocrit 39.4 % (37.0-47.0); Hemoglobin 12.4 g/dL (12.2-16.2); Lymphocytes # 2.6 K/mm3 (0.7-4.5); Lymphocytes % 21.6 % (10-50); Mean Corpuscular HGB Conc 31.4 g/dL (31.8-35.4); Mean Corpuscular Hemoglobin 29.8 pg (27.0-31.2); Mean Corpuscular Volume 94.9 fl (81-99); Mean Platelet Volume 9.2 fl (7.4-10.4); Monocytes # 0.8 K/mm3 (0.1-1.0); Monocytes % 6.2 % (1.7-9.3); Neutrophils # 8.7 K/mm3 (1.8-7.8); Neutrophils % 71.1 % (37.0-80.0); Platelet Count 447 K/mm3 (142-424); Red Blood Count 4.16 M/mm3 (4.20-5.40); White Blood Count 12.2 K/mm3 (4.8-10.8)
[2022-05-01 11:08] LABS: Chloride 99 mmol/L (98-107); Sodium 139 mmol/L (136-145)
[2022-05-01 11:11] LABS: Alanine Aminotransferase 27 U/L (12-78); Alkaline Phosphatase 94 U/L (38-126); Aspartate Amino Transferase 30 U/L (14-36); Bilirubin,Total 0.7 mg/dl (0.2-1.3); Blood Urea Nitrogen 15 mg/dl (7-17); Estimated Glomerular Filt Rate 161 ml/min (>60); GFR (African American) 194 ML/MIN (>60)
[2022-05-01 11:12] LABS: Albumin Level 3.4 g/dl (3.5-5.0); Albumin/Globulin Ratio 1.1 (1.1-1.8); Anion Gap 14.8 mEq/L (5-15); Calcium 6.5 mg/dl (8.4-10.2); Carbon Dioxide 28 mmol/L (22.0-30.0); Glucose 159 mg/dl (74-100); Total Protein,Serum 6.4 g/dl (6.3-8.2)
[2022-05-01 11:30] LABS: Potassium 2.8 mmoL/L (3.5-5.1)
--- NOTE | 2022-05-01 13:00 | CT_ITS ---
FINAL REPORT TECHNIQUE: After the administration of intravenous contrast, axial images were obtained through the abdomen and pelvis by computed tomography. This study was performed with technique to keep radiation doses as low as reasonably achievable, (ALARA). Individualized dose reduction techniques using automated exposure control or adjustment of the MA and/or KV according to the patient's size were employed. CLINICAL HISTORY: abd pain and vomiting s/p colon resection 04-15-22 COMPARISON: 04/15/2022 FINDINGS: Abdomen: The lung bases demonstrate small bilateral pleural effusions and worsening bibasilar atelectasis. 6 mm nodule at the left lung base has not significantly changed. Patient is status post cholecystectomy. There are diffuse vascular calcifications. The liver is normal in size and attenuation. The spleen is unremarkable. Again seen is bilateral adrenal enlargement, favor hyperplasia. The pancreas is unremarkable. There are small bilateral renal cysts. Otherwise, the kidneys enhance appropriately. The aorta is normal in caliber. There is no free fluid or adenopathy. Pelvis: The appendix is not identified. The urinary bladder is unremarkable. There is no free fluid or adenopathy. There has been interval improvement of small bowel obstruction with new postoperative change to the anterior pelvic wall. There is an air and fluid collection in the anterior left pelvic wall measuring 8.4 x 2.4 cm favored to represent postoperative seroma, hematoma or abscess. There is a 2nd, more superior, midline ventral hernia containing a nonobstructed portion of transverse colon, unchanged from prior exam. There is a moderate to large amount of stool throughout the colon. There is sigmoid diverticulosis without evidence of diverticulitis. Patient is status post hysterectomy. IMPRESSION: Improved small-bowel obstruction with interval postoperative change to the lower anterior pelvic wall with likely postoperative seroma, hematoma or abscess measuring 8.4 x 2.4 cm. Reviewed, Interpreted and Dictated by Shai Schwarz III, MD Transcribed by Clau Miranda Authenticated and . [facility]
== END ==
PROVIDERS: PCP Family Medicine; Visit Provider Surgery
DX: F17.200 Nicotine dependence, unspecified, uncomplicated (principal); R11.10 Vomiting, unspecified
CPT/HCPCS: 36415; 74177; 80053; 85025; Q9967

== ENCOUNTER → 2022-05-06 11:39 | Outpatient (CLI) | payer MEDICARE, SELFPAY ==
[2022-05-06 12:29] LABS: Chloride 97 mmol/L (98-107); Sodium 140 mmol/L (136-145)
[2022-05-06 12:32] LABS: Blood Urea Nitrogen 8 mg/dl (7-17); Calcium 6.3 mg/dl (8.4-10.2); Carbon Dioxide 29 mmol/L (22.0-30.0); Estimated Glomerular Filt Rate 124 ml/min (>60); GFR (African American) 150 ML/MIN (>60); Glucose 99 mg/dl (74-100); Potassium 2.5 mmoL/L (3.5-5.1)
[2022-05-06 12:44] LABS: Anion Gap 16.5 mEq/L (5-15)
[2022-05-06 12:49] LABS: Triiodothryronine (T3) Uptake 40 % (23.5-40.5)
[2022-05-06 12:50] LABS: Free Thyroxine Index 2.8 ug/dL (5.93-13.13); T4 (Thyroxine) 7.1 ug/dl (5.53-11.0)
[2022-05-06 13:04] LABS: Thyroid Stimulating Hormone 2.16 uIU/mL (0.465-4.68)
== END ==
PROVIDERS: PCP Family Medicine; Visit Provider Physician Assistant
DX: E13.65 Other specified diabetes mellitus with hyperglycemia (principal); E87.6 Hypokalemia; F17.200 Nicotine dependence, unspecified, uncomplicated; I48.91 Unspecified atrial fibrillation
CPT/HCPCS: 36415; 80048; 84436; 84443; 84479

== ENCOUNTER 2022-05-08 10:52 | Inpatient (IN) | payer MEDICARE, SELFPAY ==
[2022-05-08] VITALS (13 sets, daily range): BP systolic 101–115; BP diastolic 51–67; PULSE 80–107; RESP 16–26; TEMP 36.5–36.7; O2SAT 89–97; BMI 23.6
--- NOTE | 2022-05-08 10:48 | ECG_ITS ---
APPROVED REPORT Exam: Resting ECG HR:101 bpm ECG Measurements Heart Rate 101 AXES QRSd 86 QRS 20 QT 400 T 50 QTc 458 Conclusion ATRIAL FIBRILLATION WITH RAPID VENTRICULAR RESPONSE LOW QRS VOLTAGE IN EXTREMITY LEADS [QRS DEFLECTION < 0.5 mV IN LIMB LEADS] POSSIBLE ANTERIOR MYOCARDIAL INFARCTION , PROBABLY OLD [30 ms Q WAVE IN V3/V4, OR R < 0.2 mV IN V4] ABNORMAL RHYTHM ECG UNCONFIRMED REPORT Electronically signed by : Donavan Cash MD 05/08/2022 19:12:13
--- NOTE | 2022-05-08 11:09 | HMH.EDGENADL ---
Discharge Plan Disposition Patient Disposition: Admitted As Inpatient Condition: Serious Prescriptions Prescriptions: No Action theophylline 400 MG tablet extended release 24 hr 400 mg PO BID Label Comments: TAKE BY MOUTH DIRECTED TWICE DAILY diltiazem HCl 300 MG capsule,extended release 24 hr 300 mg PO DAILY potassium chloride 20 MEQ tablet 20 mg PO BID Label Comments: TAKE 1 TABLET BY MOUTH EVERY DAY --TAKE WITH FOOD-- omeprazole 20 MG capsule,delayed release(DR/EC) 20 mg PO DAILY Label Comments: TAKE 1 CAPSULE BY MOUTH EVERY DAY metformin 500 mg tablet 500 mg PO BID Label Comments: TAKE ONE TABLET BY MOUTH TWICE DAILY --TAKE WITH FOOD-- lisinopril-hydrochlorothiazide 20-12.5 mg tablet 2 tab PO DAILY Label Comments: TAKE TWO TABLETS BY MOUTH EVERY DAY ondansetron HCl 4 mg tablet 4 mg PO Q6HP PRN (Reason: Nausea And Vomiting) Label Comments: TAKE ONE TABLET BY MOUTH EVERY 6 HOURS montelukast 10 mg tablet 10 mg PO PM Label Comments: TAKE ONE TABLET BY MOUTH EVERY DAY IN THE EVENING duloxetine 30 mg capsule,delayed release(DR/EC) 30 mg PO DAILY Label Comments: TAKE ONE CAPSULE BY MOUTH EVERY DAY WITH 60MG CAPSULE Rx Instructions: TAKE WITH 60MG CAPSULE duloxetine 60 mg capsule,delayed release(DR/EC) 60 mg PO DAILY Label Comments: TAKE ONE CAPSULE BY MOUTH EVERY DAY Rx Instructions: TAKE WITH 30MG CAPSULE pioglitazone 15 mg tablet 15 mg PO DAILY Label Comments: TAKE ONE TABLET BY MOUTH EVERY DAY albuterol sulfate 90 mcg/actuation HFA aerosol inhaler 2 inh INHALATION Q4HP PRN (Reason: Shortness Of Breath) Label Comments: INHALE TWO PUFFS BY MOUTH EVERY 4 HOURS NEEDED --SHAKE WELL BEFORE USE-- bisoprolol fumarate 10 mg tablet 10 mg PO DAILY Eliquis 5 mg tablet 5 mg PO BID Trelegy Ellipta 200-62.5-25 mcg blister with device 1 inh inhalation DAILY Clinical Impressions Clinical Impression: New onset of congestive heart failure, Chest pain, Elevated troponin, Acute hypokalemia, Colitis, UTI (urinary tract infection), Junctional rhythm, Hypomagnesemia Discharge ED Provider: Shay Zepeda Adult HPI General Chief complaint: Chest Pain Stated complaint: chest pain Time Seen by Provider: 05/08/22 11:25 Mode of Arrival: Wheelchair Source of Information: Patient and Relative Limitations: No Limitations Description of Symptoms (Recalled from ER Triage Doc. by RN): pt comes in with c/o vomitting, tingiling in both arms, chest pain that began about 20 minutes prior to arrival. pt had abdominal surgery for hernia repair here 04/15. pt was to have f/u today with dr ocampo, but cancelled due to vomitting. History of Present Illness HPI narrative: Patient states that she has had vomiting for 2 days. Patient also states that both of her arms feel tingly today. She had an episode of chest pain in her left anterior chest 20 minutes prior to arrival that resolved. Mild shortness of breath. No shortness of breath currently. No pain with breathing. Denying any current pain including abdominal pain. The patient had an incarcerated hernia and had surgery here 04/15/2022. She had an appointment to see Dr. Ocampo today for follow-up, but canceled the appointment because she was too sick. Dr. Ocampo advised her that if her vomiting persisted to come to the emergency department. Denies fever. Related Data Home Medications Medication Instructions Recorded Confirmed diltiazem HCl 300 mg capsule,24 300 mg PO DAILY HEART RATE 08/25/18 05/08/22 hr,extended release omeprazole 20 mg capsule,delayed 20 mg PO DAILY GERD 08/25/18 05/08/22 release potassium chloride 20 mEq 20 mg PO BID Supplement 08/25/18 05/08/22 tablet,extended release(part/cryst) theophylline 400 mg 400 mg PO BID COPD 08/25/18 05/08/22 tablet,extended release 24 hr du
[2022-05-08 11:22] LABS: Chloride 96 mmol/L (98-107); Sodium 140 mmol/L (136-145)
[2022-05-08 11:24] LABS: Potassium 2.6 mmoL/L (3.5-5.1)
--- NOTE | 2022-05-08 11:24 | PC.NURSE ---
notified ER of critical potassium
[2022-05-08 11:25] LABS: Anion Gap 14.6 mEq/L (5-15); Blood Urea Nitrogen 8 mg/dl (7-17); Calcium 5.9 mg/dl (8.4-10.2); Carbon Dioxide 32 mmol/L (22.0-30.0); Creatinine Clearance Estimated 65 mL/min (50-200); Estimated Glomerular Filt Rate 84 ml/min (>60); GFR (African American) 102 ML/MIN (>60); Glucose 170 mg/dl (74-100)
--- NOTE | 2022-05-08 11:25 | PC.NURSE ---
RICHA POTTS at for pt jadaal
--- NOTE | 2022-05-08 11:30 | CT_ITS ---
FINAL REPORT TECHNIQUE: Axial imaging of the chest is obtained after the administration of contrast. 3-D MIP reformatted images were also obtained and reviewed per PE protocol. CLINICAL HISTORY: Chest pain, recent surgery COMPARISON: 10/05/2017 FINDINGS: The pulmonary arteries are well filled. There is no evidence of pulmonary embolus. Exam is limited for aortic dissection due to contrast bolus timing. There is aortic calcification without cysts or sclerotic disease. The heart is enlarged which is new compared to the prior exam. There are small bilateral pleural effusions. No pericardial effusion is seen. The thyroid is mildly enlarged. There is no axillary lymphadenopathy. There are new, enlarged mediastinal lymph nodes. An AP window lymph node measures 2.6 cm. A right paratracheal lymph node measures 1.8 cm. There is no hilar lymphadenopathy. There are bilateral ground-glass opacities with mild interlobular septal thickening favored to represent pulmonary edema. No acute osseous abnormality is seen. IMPRESSION: No evidence of pulmonary embolism. Nondiagnostic exam for aortic dissection. New cardiomegaly with small bilateral pleural effusions and ground-glass opacities favored to represent CHF. New lymphadenopathy. Lymphadenopathy can be seen in CHF. Consider follow-up. Reviewed, Interpreted and Dictated by Kirstin Sales MD Transcribed by Mary Benites Authenticated and [facility][1]
--- NOTE | 2022-05-08 11:30 | CT_ITS ---
FINAL REPORT TECHNIQUE: Thin section axial images were obtained through the abdomen after intravenous contrast. Reconstruction images were obtained from the axial data. Exam was performed using dose reduction techniques. CLINICAL HISTORY: Abdominal pain, vomiting, recent surgery COMPARISON: 05/01/2022 FINDINGS: The liver is homogeneous. The gallbladder is absent. The spleen is unremarkable. Adrenal hyperplasia is stable. There are few calcifications in the uncinate process and head of the pancreas. There may be a small cystic lesion in the head of the pancreas measuring 2.7 cm. There is a small hypodense renal lesion which is stable and likely a cyst. Nonspecific perinephric stranding is stable. There is a midline supraumbilical hernia containing a portion of transverse colon similar to the prior exam with the exception that there is now long segment colon wall thickening. Small retroperitoneal lymph nodes are unchanged.. The wall of the urinary bladder is very thick despite being decompressed. There is surrounding abnormal attenuation which is worse than the previous exam concerning for cystitis. The fluid collection in the lower anterior abdominal wall is less less dense but similar in size. This is favored to represent evolving hematoma. Abscess is not excluded. There is stable diverticulosis. There is a small amount of free fluid. The patient is status post hysterectomy. No acute osseous abnormality is seen. IMPRESSION: 1. Long segment wall thickening of the colon concerning for colitis. This is new as compared to the prior exam. 2. Significant wall thickening of the urinary bladder with surrounding abnormal attenuation concerning for cystitis. 3. Possible cystic mass in the head of the pancreas with findings of chronic pancreatitis. Consider MRCP without and with contrast once acute symptomatology has resolved. This could be performed in an outpatient setting. Reviewed, Interpreted and Dictated by Kirstin Sales MD Transcribed by Mary Benites Authenticated and [facility]
--- NOTE | 2022-05-08 11:30 | XR_ITS ---
FINAL REPORT CLINICAL HISTORY: chest pain FINDINGS: A portable view of the chest was obtained. Comparison is made to a prior exam dated 04/15/2022. Cardiac and mediastinal silhouettes are within normal limits. There are new interstitial opacities and bibasilar airspace disease. There is no pleural effusion or pneumothorax. IMPRESSION: Findings favoring pulmonary edema. Pneumonia not excluded. Reviewed, Interpreted and Dictated by Kirstin Sales MD Transcribed by Aleena Marquez Authenticated and [facility]
[2022-05-08 11:37] LABS: Basophils # 0.1 K/mm3 (0-0.2); Basophils % 1.2 % (0.1-2.0); Eosinophils # 0.2 K/mm3 (0.0-0.4); Eosinophils % 1.5 % (0.1-12.0); Hematocrit 41.4 % (37.0-47.0); Hemoglobin 13.8 g/dL (12.2-16.2); Lymphocytes # 1.8 K/mm3 (0.7-4.5); Lymphocytes % 16.8 % (10-50); Mean Corpuscular HGB Conc 33.3 g/dL (31.8-35.4); Mean Corpuscular Volume 93.1 fl (81-99); Mean Platelet Volume 8.5 fl (7.4-10.4); Monocytes # 0.6 K/mm3 (0.1-1.0); Monocytes % 5.8 % (1.7-9.3); Neutrophils # 8.1 K/mm3 (1.8-7.8); Neutrophils % 74.8 % (37.0-80.0); Platelet Count 427 K/mm3 (142-424); Red Blood Count 4.44 M/mm3 (4.20-5.40); Red Cell Distribution Width 15.3 % (11.5-17.5); White Blood Count 10.8 K/mm3 (4.8-10.8)
[2022-05-08 11:38] LABS: Troponin I 0.12 ng/ml (0.00-0.034)
[2022-05-08 11:43] LABS: Alanine Aminotransferase 24 U/L (12-78); Alkaline Phosphatase 82 U/L (38-126); Aspartate Amino Transferase 31 U/L (14-36); Bilirubin,Direct 0.3 mg/dl (0.0-0.4); Bilirubin,Indirect 0.2 mg/dL (0.0-0.9); Bilirubin,Total 0.5 mg/dl (0.2-1.3); Bilirubin,Unconjugated 0.3 mg/dL (0.0-1.1)
[2022-05-08 11:44] LABS: Albumin Level 3.7 g/dl (3.5-5.0); Lipase 23 U/L (23-300); Total Protein,Serum 6.9 g/dl (6.3-8.2)
--- NOTE | 2022-05-08 11:45 | PC.NURSE ---
pt placed on 3 liters NC due to her oxygen being 87% while on RA.
--- NOTE | 2022-05-08 12:31 | PC.NURSE ---
rounded on pt at this time, pt resting in bed, no family at bedside. call light in reach.
[2022-05-08 13:25] LABS: NT Pro Brain Natriuretic Pep. 8800 pg/mL (0-125)
--- NOTE | 2022-05-08 13:25 | CA_ITS ---
APPROVED REPORT EXAM: Comprehensive 2D, Doppler, and color-flow Echocardiogram [employer] Test Engineer: Sherie Casas RVT Ht: 5 ft 9 in Wt: 160lbs BSA: 1.88 BP: 115/67 mmHg Indications: CP,SOA,CHF,A-FIB,DM,SMOKER,COPD 2D Dimensions LVOT 1.99 cm (M/F) 1.5-2.5 LA Volume 89.60 mL LA Volume Index 47.66 mL/m2 (M/F) 16-34 M-Mode Dimensions RVDd 2.30 cm (0.9-2.6) LA Diam 4.71 cm (1.9-4.0) LVDd 5.34 cm (3.5-5.7) Ao Diam 2.95 cm (2.0-3.7) LVDs 3.69 cm (3.5-5.7) IVSd 0.68 cm (0.6-1.1) PWd 0.76 cm (0.6-1.1) EF (Teich) 58.00% FS 30.90% EDV (Teich) 137.70 mL TAPSE 2.46 (<1.7) ESV (Teich) 57.80 mL LV Diastology E Decel Time 283.00 (160-240 msec) E/A Ratio 1.6 MED E' 4.10 (< 7 cm/sec) E'/MED E' Ratio 41.78 (>14) LAT E' 7.20 (<10 cm/sec) E/LAT E' Ratio 23.79 (>14) Aortic Valve AO Peak GR. 3.60 mmHg Mitral Valve MV E Max Russ. 171.00 (40-130 cm/s) MV A Velocity 104.00 (40-130 cm/s) E/A Ratio 1.64 MV Decel. Time 283.00 (160-240 ms) MV PHT 83.00 ms Pulmonary Valve PV Peak Velocity 71.00 (50-150 cm/s) Tricuspid Valve TR P. Velocity 371.00 cm/s RAP Estimate 10.00 mmHg RVSP 65.20 mmHg Left Ventricle Left atrium is moderately enlarged, left ventricle is normal size mild concentric left ventricular hypertrophy, estimated ejection fraction 50%, there is moderate inferior basal wall hypokinesis. Diastolic parameters are inconclusive. Right Ventricle Right atrium and right ventricle are mildly enlarged with normal contractility. Aortic Valve Aortic valve is thickened and calcified without Doppler evidence of aortic stenosis or aortic insufficiency. Mitral Valve Mitral valve has dense mitral calcification, leaflets are minimally thickened, there is no significant mitral inflow obstruction, there is severe mitral regurgitation. Tricuspid Valve Tricuspid valve grossly normal, there is mild tricuspid regurgitation, tricuspid regurgitation jet velocity is inadequate for calculation of the right ventricular systolic pressure. Pulmonic Valve Pulmonic valve is poorly visualized. Great Vessels Aortic root is normal size. Inferior vena cava is mildly dilated with less than 50% inspiratory collapse. Pericardium No significant pericardial effusion noted. Conclusion 1. Biatrial enlargement, normal left ventricular size, mild concentric left ventricular hypertrophy, estimated ejection fraction 50% with segmental wall motion abnormality, diastolic parameters are inconclusive. 2. Thickened and calcified aortic valve without aortic stenosis aortic insufficiency. 3. Abnormal mitral valve as described above with severe mitral regurgitation. 4. No significant pericardial effusion noted. 5. Inferior vena cava is mildly dilated with less than 50% inspiratory collapse. Electronically signed by : Brijesh Suarez MD 05/09/2022 15:27:06
[2022-05-08 13:32] LABS: Microscopic, Urine URINE MICROSCOPIC (MICROSCOPIC)
[2022-05-08 13:34] LABS: Blood, Urine 3+ (Negative); Color,Urine YELLOW (Yellow); Glucose,Urine (UA) Negative (Negative); Ketones,Urine Negative (Negative); Leukocyte Esterase,Urine 2+ (Negative); Nitrate,Urine Negative (Negative); PH,Urine 6.5 (5.0-8.5); Protein,Urine 3+ (Negative)
[2022-05-08 13:36] LABS: Appearance,Urine Cloudy (Clear); Bilirubin,Urine 1+ (Negative)
--- NOTE | 2022-05-08 13:41 | PC.NURSE ---
RICHA POTTS at for update on POC
--- NOTE | 2022-05-08 13:45 | PC.NURSE ---
RICHA POTTS speaking with NATAN Fitzpatrick with Cardiology
[2022-05-08 13:49] LABS: Bacteria,Urine 2+ /lpf
--- NOTE | 2022-05-08 13:55 | PC.NURSE ---
cv lab staff at
--- NOTE | 2022-05-08 14:11 | PC.NURSE ---
speaking to hospitalist
--- NOTE | 2022-05-08 14:15 | PC.NURSE ---
david santiago at the bedside
--- NOTE | 2022-05-08 14:24 | EXP.CARD.CON ---
History of Present Illness History of Present Illness Consult date: 05/08/22 Requesting physician: Shay Zepeda Consult reason: atrial fibrillation and congestive heart failure Chief complaint: vomiting History of present illness: This is a 66-year-old white female who presented to the emergency department with a 2-day history of vomiting. The patient states that she had been vomiting for 2 days and then it got better. She states that this morning she woke up with vomiting again. She states that today it was associated with tingling in her bilateral upper extremities and then approximately 20 minutes prior to coming into the emergency department she started to have a burning chest sensation. She states that she was mildly short of breath with her symptoms but it was not too bad. She states nothing worsened or improved her symptoms. She denied any abdominal pain. She denied any fever, chills, diarrhea, PND orthopnea. The patient has reported having bilateral lower extremity edema for approximately 2 weeks. Of note she was in cardiology clinic approximately 2 days ago with atrial fibrillation with RVR. The patient was started on bisoprolol and Eliquis at that time. She states that she has just not felt good the last week and her symptoms continued to worsen. While in the emergency department the patient was found to have an elevated troponin as well as an elevated BNP. Chest x-ray shows pulmonary edema. Cardiology was then consulted. She did have an echocardiogram at bedside and preliminary ejection fraction is 40% with moderate to severe mitral regurgitation. [facility] Disclaimer: The information contained in this section may have been updated after the patient was seen, as this information can be updated by other users. Medical History (Updated 05/08/22 @ 14:37 by Nanette Washington APRN) Abnormal electrocardiogram [ECG] [EKG] Acute hypokalemia Acute systolic (congestive) heart failure Arthritis Asthma Colitis COPD (chronic obstructive pulmonary disease) Diabetes Diabetes mellitus with hyperglycemia Elevated troponin Hypertension Non-STEMI (non-ST elevated myocardial infarction) Tobacco dependence syndrome UTI (urinary tract infection) Surgical History History of colonoscopy History of laparoscopic cholecystectomy History of total hysterectomy Family History Other No significant family history Social History Smoking Status: Current every day smoker tobacco type: cigarettes packs per day: 1 alcohol intake: never substance use type: denies use current occupational status: disabled Travel in the last 8 weeks: None household members: family caffeine: Yes Review of Systems Review of Systems Review of systems:: pertinent systems reviewed and negative unless documented below Constitutional Constitutional: Reports system reviewed and no additional complaints, except as documented and Reports lethargy Eyes Eyes: Reports system reviewed and no additional complaints, except as documented ENT Ears, Nose, Mouth, and Throat: Reports system reviewed and no additional complaints, except as documented *Cardiovascular Cardiovascular: Reports system reviewed and no additional complaints, except as documented, Reports chest pain, Reports chest pain at rest, Reports chest pain with activity, Reports dyspnea, Reports dyspnea on exertion, Reports leg edema and Reports radiating jaw, neck or arm pain *Respiratory Respiratory: Reports system reviewed and no additional complaints, except as documented, Reports dyspnea and Reports dyspnea on exertion *Gastrointestinal Gastrointestinal: Reports system reviewed and no additional complaints, except as documented, Reports nausea and Reports vomiting *Genitourinary Genitourinary: Reports system reviewed and no additional complaints, except
--- NOTE | 2022-05-08 14:29 | HMH.PHAINT1 ---
Pharmacy Intervention Comments: MEDICATION RECONCILIATION COMPLETED ON PATIENT USING EXTERNAL FILL HISTORY FROM PHARMACY AND LIST FROM CARDIOLOGY OFFICE. -BERTRAND ADLER, SAPNAD
[2022-05-08 14:39] LABS: Magnesium 0.3 mg/dl (1.6-2.3)
--- NOTE | 2022-05-08 14:41 | PC.NURSE ---
CRITICAL MAG LEVEL 0.3 RECEIVED FROM LISSETH IN LAB. PT NAME AND R/V. DR VIRGEN NOTIFIED
--- NOTE | 2022-05-08 14:45 | PC.NURSE ---
notified care management of admission, spoke with nathan
[2022-05-08 14:58] LABS: Coronavirus 19, PCR Not Detected (NotDetected); Influenza A, PCR Not Detected (NotDetected); Influenza B, PCR Not Detected (NotDetected)
[2022-05-08 15:07] LABS: Troponin I 0.13 ng/ml (0.00-0.034)
--- NOTE | 2022-05-08 15:19 | PC.NURSE ---
greenhouse assistant called, reports working on bed assignment for her
--- NOTE | 2022-05-08 15:21 | PC.NURSE ---
per lab will be approx 25 minutes until covid swab results, states going on the analyzer now.
--- NOTE | 2022-05-08 16:23 | PC.NURSE ---
Pt arrived to the floor at this time
--- NOTE | 2022-05-08 16:58 | EXP.HP ---
History of Present Illness *Admission Date: 05/08/22 *Reason for visit:: Chest pain *History of present illness: This is a 66-year-old female that presents to [facility] emergency department at the request of her general surgeon for evaluation. She reports incarcerated hernia repair at the end of March. Her past medical history significant for recent diagnoses of atrial fibrillation on chronic anticoagulation, COPD on 5 L of oxygen at home, ongoing tobacco dependence and diabetes. She describes approximately 2 days of nausea and vomiting not improving with home care. She started experiencing chest pain that radiated to her left side approximately 20 minutes prior to ED presentation lasting several minutes and resolving upon arrival. She characterizes the pain as a burning sensation. She describes associated shortness of air. She reports when the chest pain radiated to her extremities it created tingling sensation as well. She denied associated diaphoresis, palpitations or syncope. She reports no associated abdominal pain, hematemesis, melena or hematochezia. In the ED her heart rate was 107 and her blood pressure 104/60. She was saturating appropriately on her typical home oxygen requirement. Her laboratory studies identified a white blood cell count of 10.8 with a hemoglobin 13.8. Her troponins were elevated x2. Hypomagnesemia and kalemia was identified and replaced. Her BNP was elevated at greater than 8000. Imaging of her chest and abdomen identified pulmonary edema, colitis and cystitis. A bedside echocardiogram identified an ejection fraction of 40% with moderate to severe MR. Cardiology was consulted out of the ED. [facility] Disclaimer: The information contained in this section may have been updated after the patient was seen, as this information can be updated by other users. Medical History (Updated 05/08/22 @ 17:09 by Manuel Cruz MD) Abnormal electrocardiogram [ECG] [EKG] Acute hypokalemia Acute systolic (congestive) heart failure Arthritis Asthma Colitis COPD (chronic obstructive pulmonary disease) Diabetes Diabetes mellitus with hyperglycemia Elevated troponin Hypertension Non-STEMI (non-ST elevated myocardial infarction) Tobacco dependence syndrome UTI (urinary tract infection) Surgical History (Updated 05/08/22 @ 17:05 by Manuel Cruz MD) History of colonoscopy History of laparoscopic cholecystectomy History of total hysterectomy S/P herniorrhaphy Family History Other No significant family history Social History Smoking Status: Current every day smoker tobacco type: cigarettes packs per day: 1 alcohol intake: never substance use type: denies use current occupational status: disabled Travel in the last 8 weeks: None household members: family caffeine: Yes Review of Systems Review of Systems Review of systems:: pertinent systems reviewed and negative unless documented below *Cardiovascular Cardiovascular: Reports chest pain, Reports chest pain at rest, Reports chest pain with activity and Reports dyspnea *Respiratory Respiratory: Reports dyspnea *Gastrointestinal Gastrointestinal: Reports heartburn, Reports nausea and Reports vomiting *Musculoskeletal Musculoskeletal: Reports tingling *Neurologic Neurologic: Reports tingling Meds Home Medications and Allergies Home Medications Medication Instructions Recorded Confirmed Type diltiazem HCl 300 mg capsule,24 300 mg PO DAILY HEART RATE 08/25/18 05/08/22 History hr,extended release omeprazole 20 mg capsule,delayed 20 mg PO DAILY GERD 08/25/18 05/08/22 History release potassium chloride 20 mEq 20 mg PO BID Supplement 08/25/18 05/08/22 History tablet,extended release(part/cryst) theophylline 400 mg 400 mg PO BID COPD 08/25/18 05/08/22 History tablet,extended release 24 hr duloxetine 30 mg capsule,tiana
[2022-05-08 17:29] LABS: POC Glucose,Bedside 137 (70-110)
[2022-05-08 18:24] LABS: Troponin I 0.12 ng/ml (0.00-0.034)
[2022-05-08 20:23] LABS: POC Glucose,Bedside 167 (70-110)
[2022-05-09] VITALS (33 sets, daily range): BP systolic 90–143; BP diastolic 45–68; PULSE 60–96; RESP 16–22; TEMP 36.4–36.6; O2SAT 90–98; BMI 22.8
--- NOTE | 2022-05-09 04:28 | PC.NURSE ---
NO ACUTE CHANGES SINCE RECEIVING REPORT. PT HAS RESTED WELL THIS SHIFT. NO C/O CHEST PAIN OR SOB THIS SHIFT. TOLERATING NASAL CANNULA WELL. AMBULATING TO THE BATHROOM WITH X1 ASSIST. DIMINISHED BREATH SOUNDS. +2 PITTING TO BILATERAL LOWER EXTREMITIES. VSS. CALL COE WITHIN REACH.
[2022-05-09 04:32] LABS: POC Glucose,Bedside 102 (70-110)
[2022-05-09 06:39] LABS: Basophils # 0.1 K/mm3 (0-0.2); Basophils % 0.9 % (0.1-2.0); Eosinophils # 0.1 K/mm3 (0.0-0.4); Hematocrit 39.2 % (37.0-47.0); Hemoglobin 12.6 g/dL (12.2-16.2); Lymphocytes # 1.4 K/mm3 (0.7-4.5); Lymphocytes % 14.3 % (10-50); Mean Corpuscular HGB Conc 32.2 g/dL (31.8-35.4); Mean Corpuscular Hemoglobin 29.7 pg (27.0-31.2); Mean Corpuscular Volume 92.2 fl (81-99); Mean Platelet Volume 8.7 fl (7.4-10.4); Monocytes # 0.4 K/mm3 (0.1-1.0); Monocytes % 4.5 % (1.7-9.3); Neutrophils # 7.6 K/mm3 (1.8-7.8); Neutrophils % 79.4 % (37.0-80.0); Platelet Count 371 K/mm3 (142-424); Red Blood Count 4.25 M/mm3 (4.20-5.40); Red Cell Distribution Width 15.3 % (11.5-17.5); White Blood Count 9.6 K/mm3 (4.8-10.8)
[2022-05-09 06:50] LABS: Anion Gap 13.2 mEq/L (5-15); Blood Urea Nitrogen 8 mg/dl (7-17); Calcium 5.8 mg/dl (8.4-10.2); Carbon Dioxide 31 mmol/L (22.0-30.0); Chloride 99 mmol/L (98-107); Creatinine Clearance Estimated 63 mL/min (50-200); Estimated Glomerular Filt Rate 84 ml/min (>60); GFR (African American) 102 ML/MIN (>60); Glucose 109 mg/dl (74-100); Sodium 141 mmol/L (136-145)
[2022-05-09 06:59] LABS: NT Pro Brain Natriuretic Pep. 4940 pg/mL (0-125)
[2022-05-09 07:02] LABS: Magnesium 0.8 mg/dl (1.6-2.3); Potassium 2.2 mmoL/L (3.5-5.1)
[2022-05-09 07:06] LABS: Procalcitonin 0.066 ng/mL (0.0-2.0)
--- NOTE | 2022-05-09 07:08 | IR_ITS ---
APPROVED REPORT Patient Location: Inpatient Auto Painter Helper: TRACI Harper RT (R) PROCEDURES Right heart catheterization Left heart catheterization Left ventriculogram Selective coronary angiogram INDICATION Severe mitral regurgitation, Preoperative evaluation for mitral valve repair Informed consent was obtained prior to the procedure. COMPLICATIONS NONE Estimated Blood Loss: LESS THAN 10 ML TECHNIQUE One percent lidocaine was used to anesthetize the right anterior aspect of the right wrist. The right radial artery was accessed via the Seldinger technique and a 6 Mont[place]grin hydrophilic sheath was placed in the right radial artery. Following this one percent lidocaine was used to anesthetize the right anterior aspect of the right neck. The right internal jugular vein was accessed via the Seldinger technique and a 7 [place] sheath was placed in the right internal jugular vein. Following this an arterial cocktail was administered using 5000U heparin, 2.5 mg verapamil, 1mg Lidocaine and 800mcg nitroglycerin into the right radial sheath. A papa catheter was used to perform left heart catheterization left ventriculogram and selective coronary angiography while a [place]Cad[place] catheter was used to perform right heart catheterization. Saturations were obtained in the pulmonary artery and right atrium. At the end of the procedure the arterial sheath was removed good hemostasis was achieved using Traclet band. Patient was transferred to the postop holding area in stable condition for venous sheath removal. ANGIOGRAPHIC RESULTS The left main artery Normal The left anterior descending artery Has proximal 10 to 20% stenosis with a mid vessel concentric 60 to 70% stenosis The circumflex artery Nondominant with proximal 50% stenosis followed by mid vessel eccentric 90% stenosis. The right coronary artery Dominant proximally occluded with the distal vessel filling via a large left to right collateral network The JAMES ventriculogram reveals Slight LV dilatation with ejection fraction 60% The left ventricular end-diastolic pressure 25 mmHg Right atrial pressure 8 mmHg Pulmonary artery pressure 40/28 mmHg Pulmonary occlusion pressure 28 mmHg Right atrial saturation 65% Pulmonary artery saturation 64% Hemoglobin 12.6 Aortic saturation 92% Cardiac output 4.7 L/min IMPRESSION Severe three-vessel coronary artery disease Severe mitral regurgitation PLAN 1. Patient requires surgical correction of the mitral valve with surgical revascularization if she is a candidate from a pulmonary standpoint 2. rate control atrial fibrillation with higher doses of beta-blockers 3. IV Lasix in order to decrease left-sided filling pressures 4. Discharge patient home tomorrow on higher doses of oral Lasix 5. Anticoagulation for atrial fibrillation 6. Pulmonary function test 7. Patient has been referred to [facility] CT surgery for mitral valve replacement and bypass surgery. Patient has an appointment with Dr. Barger [facility] next Electronically signed by : Les Rodríguez MD 05/09/2022 12:53:34
--- NOTE | 2022-05-09 07:45 | PC.NURSE ---
called record label intern to report K+ of 2.2, Ca of 5.8, and Mg of 0.8, spoke with Renuka
[2022-05-09 07:49] LABS: Hemoglobin A1C 7.2 % (4.0-6.0)
--- NOTE | 2022-05-09 08:18 | CA_ITS ---
APPROVED REPORT EXAM: Comprehensive 2D, Doppler, and color-flow Echocardiogram Time Study Clerk: RT Stan(R) Ht: 5 ft 9 in Wt: 155lbs BSA: 1.85 BP: 115/67 mmHg Indications: MR, CP, COPD, smoker, DM, SOB, AFIB, CHF Aortic Valve AO VTI 38.67 (18-25 cm) Mitral Valve MV PHT 63.00 ms Procedure After obtaining informed consent, patient underwent transesophageal echo in the Electric Truck Crane Operator. Type of Sedation : Conscious Sedation Sedation was administered by Sherwin Perez C.R.N.A. Transesophageal probe was inserted and advanced into esophagus without difficulty by Dr. Harry Jay. The NAYELI was performed without complications. Throughout the procedure, the blood pressure, pulse oximetry, cardiac rhythm, and rate were monitored. The patient tolerated the procedure without adverse effects. Recovery from conscious sedation was uneventful and vital signs were stable. Left Ventricle Left ventricle is normal size mild concentric left ventricular hypertrophy, estimated ejection fraction 50% with moderate posterior basal wall hypokinesis. Right Ventricle Right ventricle is mildly enlarged with normal contractility. Atria Left atrium is markedly enlarged, left atrial appendage is free of thrombus, there is adequate appendage flow by spectral Doppler. Right atrium is mildly enlarged. Intra-atrial septum is intact, there is patent foramen ovale with [id number] shunt. Aortic Valve Aortic valve is thickened and calcified without aortic stenosis aortic insufficiency. Mitral Valve Mitral valve has mitral annular calcification, that extends in both anterior posterior mitral leaflet, there is no significant mitral inflow obstruction, there is severe mitral regurgitation. Tricuspid Valve Tricuspid valve grossly normal, there is mild tricuspid regurgitation. Pulmonic Valve Pulmonic valve is grossly normal. Great Vessels Aortic root is normal size. Ascending, arch and descending thoracic aorta there is no aneurysm or dissection, extensive atherosclerosis of the arch and descending thoracic aorta seen. Inferior vena cava is not well visualized. Pericardium No significant pericardial effusion noted. Conclusion 1. Dilated left atrium, normal left ventricular size mild concentric left ventricular hypertrophy, estimated ejection fraction 50% with segmental wall motion abnormality described above. 2. Thickened and calcified aortic valve without aortic stenosis aortic insufficiency. 3. Patent foramen ovale with [id number] shunt. 4. Severe mitral regurgitation as described above. 5. Extensive atherosclerosis seen in the arch and descending thoracic aorta. 6. Other ancillary swelling as described above. Electronically signed by : Brijesh Suarez MD 05/09/2022 17:36:07
--- NOTE | 2022-05-09 08:39 | PC.WOUNDNOTE ---
incision with ruddy in place from hernia repair 04/15
--- NOTE | 2022-05-09 09:41 | P.PN_ITS ---
[facility] Disclaimer: The information contained in this section may have been updated after the patient was seen, as this information can be updated by other users. Medical History Abnormal electrocardiogram [ECG] [EKG] Acute hypokalemia Acute systolic (congestive) heart failure Arthritis Asthma Colitis COPD (chronic obstructive pulmonary disease) Diabetes Diabetes mellitus with hyperglycemia Elevated troponin Hypertension Non-STEMI (non-ST elevated myocardial infarction) Tobacco dependence syndrome UTI (urinary tract infection) Surgical History History of colonoscopy History of laparoscopic cholecystectomy History of total hysterectomy S/P herniorrhaphy Family History Other No significant family history Social History (Updated 05/08/22 @ 17:59 by Ines Reeves RN) Smoking Status: Current every day smoker tobacco type: cigarettes packs per day: 1 alcohol intake: never substance use type: denies use current occupational status: disabled Travel in the last 8 weeks: None household members: family caffeine: Yes [facility] Anesthesia Checklist Patient Identification Patient Identification: Arm Band and Verbal (Name & ) Structural Data Admitted From: Inpatient Planned Operative Procedure/s: NAYELI Consent for Planned Operative Procedure(s) Verified: Yes Verified Documents: Surgical Consent NPO Status Verified Time NPO: 00:00 Additional verifications Anesthesia Reactions: No Airway Assessment C-Spine Mobility Assessed: Yes TMJ Mobility Assessed: Yes Dentition: Good Dentition Neurological Assessment Level of Consciousness: Awake, Alert and Appropriate Anesthesia Plan Anesthesia Risk discussed: Yes ASA Class: III Anesthesia Type: MAC
--- NOTE | 2022-05-09 11:25 | EXP.CARD.PN ---
Subjective Subjective Date: 05/09/22 Time: 10:30 Principal diagnosis: Mitral Regurgitation, CHF Interval history: This is a 66-year-old white female who presented to the hospital with a 2-day history of vomiting. She also had shortness of breath and lower extremity edema. The patient was found to be in congestive heart failure with new onset cardiomyopathy and moderate to severe MR on a preliminary echocardiogram. The patient was also having chest pain. The patient has been set up for NAYELI and right and left cardiac catheterization today. This morning she states that she is feeling much better after diuresis overnight. She states her shortness of breath is much better. Her vomiting has resolved and her edema is much improved. She denies any chest pain or pressure this morning. She still is having shortness of breath but it is much better. She denies any fever, chills, nausea, vomiting, diarrhea, PND or orthopnea today. She is able to lie flat today. Exam Data for Last 24 hours Vital signs and Labs for Last 24 Hours: Temp Pulse Resp BP Pulse Ox 97.8 F 86 17 130/62 96 05/09/22 08:00 05/09/22 11:00 05/09/22 11:00 05/09/22 11:00 05/09/22 11:00 Laboratory Results - last 24 hr 05/08/22 11:03: WBC 10.8, RBC 4.44, Hgb 13.8, Hct 41.4, MCV 93.1, MCH 31.0, MCHC 33.3, RDW 15.3, Plt Count 427 H, MPV 8.5, Neut % (Auto) 74.8, Lymph % (Auto) 16.8, [place] % (Auto) 5.8, Eos % (Auto) 1.5, Baso % (Auto) 1.2, Neut # (Auto) 8.1 H, Lymph # (Auto) 1.8, [place] # (Auto) 0.6, Eos # (Auto) 0.2, Baso # (Auto) 0.1 05/08/22 11:03: Troponin I 0.12 H 05/08/22 11:03: Carbon Dioxide 32 H, Anion Gap 14.6, BUN 8, Creatinine 0.70 D, Estimated Creat Clear 65, Estimated GFR 84, Est GFR ( Amer) 102 D, Glucose 170 H, Calcium 5.9 L 05/08/22 11:03: Total Bilirubin 0.5, Direct Bilirubin 0.3, Conjugated Bilirubin 0.0, Indirect Bilirubin 0.2, Unconjugated Bilirubin 0.3, AST 31, ALT 24, Alkaline Phosphatase 82, Total Protein 6.9, Albumin 3.7, Lipase 23 05/08/22 11:03: NT-Pro-B Natriuret Pep 8800 H 05/08/22 11:03: Magnesium 0.3 L 05/08/22 13:29: Urine Color Yellow, Urine Appearance Cloudy, Urine pH 6.5, Ur Specific [place] 1.010, Urine Protein 3+, Urine Glucose (UA) Negative, Urine Ketones Negative, Urine Blood 3+, Urine Nitrate Negative, Urine Bilirubin 1+ A, Urine Urobilinogen 1.0, Ur Leukocyte Esterase 2+ A, Urine RBC 10-20, Urine WBC 10-20, Ur Squamous Epith Cells 3-5, Urine Bacteria 2+ 05/08/22 14:28: Troponin I 0.13 H 05/08/22 14:46: SARS-CoV-2 (PCR) Not detected, Influenza A Untype (PCR) Not detected, Influenza Type B (PCR) Not detected 05/08/22 17:20: POC Glucose 137 H 05/08/22 17:45: Troponin I 0.12 H 05/08/22 19:32: POC Glucose 167 H 05/09/22 04:25: POC Glucose 102 05/09/22 06:20: WBC 9.6, RBC 4.25, Hgb 12.6, Hct 39.2, MCV 92.2, MCH 29.7, MCHC 32.2, RDW 15.3, Plt Count 371, MPV 8.7, Neut % (Auto) 79.4, Lymph % (Auto) 14.3, [place] % (Auto) 4.5, Eos % (Auto) 1.0, Baso % (Auto) 0.9, Neut # (Auto) 7.6, Lymph # (Auto) 1.4, [place] # (Auto) 0.4, Eos # (Auto) 0.1, Baso # (Auto) 0.1 05/09/22 06:20: Sodium 141, Potassium 2.2 L*, Chloride 99, Carbon Dioxide 31 H, Anion Gap 13.2, BUN 8, Creatinine 0.70, Estimated Creat Clear 63, Estimated GFR 84, Est GFR ( Amer) 102, Glucose 109 H D, Calcium 5.8 L, Magnesium 0.8 L D, NT-Pro-B Natriuret Pep 4940 H, Procalcitonin 0.066 05/09/22 06:20: Hemoglobin A1c 7.2 H I & O for Last 24 hours: Intake & Output 05/06/22 05/07/22 05/08/22 05/09/22 23:59 23:59 23:59 23:59 Intake Total 240 / 240 0 / 0 Output Total 0 / 0 0 / 0 Balance 240 / 240 0 / 0 Weight 160 lb 6 oz 154 lb 3.061 oz Microbiology Reports for the Last 24 Hours: Microbiology 05/08/22 13:29 Urine,Clean Catch Urine Culture - Preliminary Constitutional Constitutional: no acute distress and average body habitus *Routine HEENT Exam Head: Present normocephalic and atraumatic ENT: Present mucous membranes moist *Routine Neck Exam Neck: Present supple, f
[2022-05-09 12:40] LABS: CATHL Arterial O2 SAT 64.9 % (90-100); CATHL Venous O2 SAT 65.4 % (75-80)
--- NOTE | 2022-05-09 12:53 | EXP.PN ---
Subjective *Date: 05/09/22 *Time: 12:53 Interval history: Date of service May 09, 2022 The patient reports no acute events overnight. She denies chest pain. Nursing staff report that she remains afebrile with improved heart rates and stable blood pressures. She is saturating appropriately on supplemental oxygen via nasal cannula. Her morning labs have been reviewed and discussed including a low potassium, magnesium and normal CBC. Her magnesium and potassium are being replaced. Cardiology plans on pursuing cardiac catheterization. Exam Data for Last 24 hours Vital signs and Labs for Last 24 Hours: Temp Pulse Resp BP Pulse Ox 97.7 F 83 18 112/63 94 L 05/09/22 12:30 05/09/22 12:45 05/09/22 12:45 05/09/22 12:45 05/09/22 12:45 Laboratory Results - last 24 hr 05/08/22 11:03: NT-Pro-B Natriuret Pep 8800 H 05/08/22 11:03: Magnesium 0.3 L 05/08/22 13:29: Urine Color Yellow, Urine Appearance Cloudy, Urine pH 6.5, Ur Specific [place] 1.010, Urine Protein 3+, Urine Glucose (UA) Negative, Urine Ketones Negative, Urine Blood 3+, Urine Nitrate Negative, Urine Bilirubin 1+ A, Urine Urobilinogen 1.0, Ur Leukocyte Esterase 2+ A, Urine RBC 10-20, Urine WBC 10-20, Ur Squamous Epith Cells 3-5, Urine Bacteria 2+ 05/08/22 14:28: Troponin I 0.13 H 05/08/22 14:46: SARS-CoV-2 (PCR) Not detected, Influenza A Untype (PCR) Not detected, Influenza Type B (PCR) Not detected 05/08/22 17:20: POC Glucose 137 H 05/08/22 17:45: Troponin I 0.12 H 05/08/22 19:32: POC Glucose 167 H 05/09/22 04:25: POC Glucose 102 05/09/22 06:20: WBC 9.6, RBC 4.25, Hgb 12.6, Hct 39.2, MCV 92.2, MCH 29.7, MCHC 32.2, RDW 15.3, Plt Count 371, MPV 8.7, Neut % (Auto) 79.4, Lymph % (Auto) 14.3, [place] % (Auto) 4.5, Eos % (Auto) 1.0, Baso % (Auto) 0.9, Neut # (Auto) 7.6, Lymph # (Auto) 1.4, [place] # (Auto) 0.4, Eos # (Auto) 0.1, Baso # (Auto) 0.1 05/09/22 06:20: Sodium 141, Potassium 2.2 L*, Chloride 99, Carbon Dioxide 31 H, Anion Gap 13.2, BUN 8, Creatinine 0.70, Estimated Creat Clear 63, Estimated GFR 84, Est GFR ( Amer) 102, Glucose 109 H D, Calcium 5.8 L, Magnesium 0.8 L D, NT-Pro-B Natriuret Pep 4940 H, Procalcitonin 0.066 05/09/22 06:20: Hemoglobin A1c 7.2 H 05/09/22 11:50: ABG O2 Sat (Measured) 64.9 L, POC VBG O2 Sat (Tomasz) 65.4 L I & O for Last 24 hours: Intake & Output 05/06/22 05/07/22 05/08/22 05/09/22 23:59 23:59 23:59 23:59 Intake Total 240 / 240 0 / 0 Output Total 0 / 0 0 / 0 Balance 240 / 240 0 / 0 Weight 72.745 kg 69.94 kg Microbiology Reports for the Last 24 Hours: Microbiology 05/08/22 13:29 Urine,Clean Catch Urine Culture - Preliminary Constitutional Constitutional: no acute distress, average body habitus and cooperative *Routine HEENT Exam Head: Present normocephalic Eye: Present EOMI and PERRL ENT: Present mucous membranes moist *Routine Neck Exam Neck: Present supple; Absent JVD or lymphadenopathy *Routine Respiratory Exam Respiratory: Present CTA bilaterally, normal respiratory effort and symmetric chest movement *Routine Cardiovascular Exam Cardiovascular: Present RRR *Routine Abdominal Exam Abdominal: Present soft and normoactive bowel sounds; Absent tenderness *Routine Extremities Exam Extremities: Present full ROM, pulses intact and normal capillary refill; Absent cyanosis, clubbing or edema *Routine Skin Exam Skin: Present warm; Absent rash *Routine Neurological Exam Neurological: Present alert, oriented X3, moving all extremities, vision grossly intact, hearing grossly intact and normal speech Routine Psychiatric Exam Psychiatric: Present normal affect, normal thought process, cooperative, good insight and good judgment Assessment and Plan *Assessment and plan (1) Non-STEMI (non-ST elevated myocardial infarction): Status: Acute Category: Medical Code(s): I21.4 - Non-ST elevation (NSTEMI) myocardial infarction (2) Acute HFrEF (heart failure with reduced ejection fraction): Status:
[2022-05-09 16:28] LABS: Potassium 2.7 mmoL/L (3.5-5.1)
[2022-05-09 16:57] LABS: POC Glucose,Bedside 227 (70-110)
--- NOTE | 2022-05-09 18:22 | PC.NURSE ---
pt post NAYELI and heart cath, right radial cath site with dressing in place, C/D/I, right intrajugular site with dressing in place, C/D/I, soft to touch, no complaints of pain or SOA, remains on 3L NC
[2022-05-09 21:39] LABS: POC Glucose,Bedside 76 (70-110)
[2022-05-10] VITALS (8 sets, daily range): BP systolic 98–120; BP diastolic 57–72; PULSE 76–108; RESP 17–20; TEMP 36.5–36.7; O2SAT 89–95; BMI 23.4
--- NOTE | 2022-05-10 04:41 | PC.NURSE ---
No acute changes this shift. Pt has rested well. No complaints stated. Has ambulated to BR without difficulty. Cath sites to (R) radial and (R) jugular are C/D/I. VSS. Medications administered per jun. Call light within reach.
[2022-05-10 06:51] LABS: POC Glucose,Bedside 149 (70-110)
[2022-05-10 07:15] LABS: Anion Gap 10.9 mEq/L (5-15); Blood Urea Nitrogen 12 mg/dl (7-17); Calcium 5.9 mg/dl (8.4-10.2); Carbon Dioxide 29 mmol/L (22.0-30.0); Chloride 100 mmol/L (98-107); Creatinine Clearance Estimated 63 mL/min (50-200); Estimated Glomerular Filt Rate 100 ml/min (>60); GFR (African American) 121 ML/MIN (>60); Glucose 144 mg/dl (74-100); Magnesium 1.3 mg/dl (1.6-2.3); Sodium 137 mmol/L (136-145)
[2022-05-10 07:19] LABS: Potassium 2.9 mmoL/L (3.5-5.1)
--- NOTE | 2022-05-10 08:38 | PC.NURSE ---
0719 critical lab value: k+ 2.9 repeated and verified pt name, , and result [id number] Cruz face to face critical lab value k+ 2.9
--- NOTE | 2022-05-10 09:42 | EXP.DC.SUM ---
General Admission date:: 05/08/22 Discharge date: 05/10/22 HPI HPI HPI: This is a 66-year-old female that presents to [facility] emergency department at the request of her general surgeon for evaluation. She reports incarcerated hernia repair at the end of March. Her past medical history significant for recent diagnoses of atrial fibrillation on chronic anticoagulation, COPD on 5 L of oxygen at home, ongoing tobacco dependence and diabetes. She describes approximately 2 days of nausea and vomiting not improving with home care. She started experiencing chest pain that radiated to her left side approximately 20 minutes prior to ED presentation lasting several minutes and resolving upon arrival. She characterizes the pain as a burning sensation. She describes associated shortness of air. She reports when the chest pain radiated to her extremities it created tingling sensation as well. She denied associated diaphoresis, palpitations or syncope. She reports no associated abdominal pain, hematemesis, melena or hematochezia. In the ED her heart rate was 107 and her blood pressure 104/60. She was saturating appropriately on her typical home oxygen requirement. Her laboratory studies identified a white blood cell count of 10.8 with a hemoglobin 13.8. Her troponins were elevated x2. Hypomagnesemia and kalemia was identified and replaced. Her BNP was elevated at greater than 8000. Imaging of her chest and abdomen identified pulmonary edema, colitis and cystitis. A bedside echocardiogram identified an ejection fraction of 40% with moderate to severe MR. Cardiology was consulted out of the ED. Hospital Course Hospital Course Hospital Course: The patient is admitted to the medical floor with telemetry monitoring and cardiology consultation. She is maintained on anticoagulation therapy and ACC guideline directed therapy for her NSTEMI, heart failure and atrial fibrillation. Routine pulse oximetry monitoring with oxygen therapy is provided for chronic respiratory failure. Tobacco cessation education is provided. Blood cultures, labs and inflammatory markers are trended with her identified colitis on imaging and urinary tract infection. Her sugars are routinely monitored with sliding scale insulin therapy. Cardiology recommended left heart catheterization and NAYELI. Her left heart catheterization performed on May 09, 2022 identifies severe mitral regurgitation with multivessel coronary artery disease. Her NAYEIL performed May 09, 2022 identifies an ejection fraction of 50% with patent foramen ovale and severe mitral regurgitation. The patient identified improvement after effective diuresis and inquired about discharge home. Her laboratory studies on discharge identified a normal complete blood count with a white blood cell count 9.6 hemoglobin 12.6 and platelet count 371. Her potassium was replaced as well as her magnesium. Her discharge sodium was normal and her creatinine on discharge was 0.6. Her admission hemoglobin A1c=7.2%. Her urine culture grew out gram-negative rods and she was discharged on Levaquin for 5 days. Her anticoagulation is transition to factor Xa inhibitor therapy and her discharge medications will include loop diuretic therapy twice a day with potassium supplementation, beta-george therapy, ARNI therapy SGLT?2 inhibitor therapy, aldosterone antagonist therapy, antiplatelet therapy and statin therapy. An appointment has been made for her to visit cardiothoracic surgery at [facility] on May 15 to discuss her multivessel coronary disease and severe mitral valve regurgitation. We have also recommended follow-up with her PCP and cardiology team. I spent 35 minutes in [id number] time with the patient and nursing staff concerning the discharge process. We discussed the admitting diagnoses and hospital course. We discussed identified improvement and the patient's desire to be discharged. We reviewed inpatient studies a
[2022-05-10 12:22] LABS: Potassium 2.9 mmoL/L (3.5-5.1)
[2022-05-10 15:10] LABS: POC Glucose,Bedside 215 (70-110)
[2022-05-10 16:01] LABS: Potassium 4.6 mmoL/L (3.5-5.1)
[2022-05-10 17:03] LABS: Calcium, Ionized 3.6 mg/dL (4.5-5.6)
--- NOTE | 2022-05-13 12:48 | CARE MANAGER ---
Attempted multiple times to reach patient to discuss post discharge status. Unable to reach via phone.
== END 2022-05-10 18:00 | disposition home or self-care (01) | DRG 280 ==
LOC: ER 14:37 → 2ND 15:29
PROVIDERS: Internal Medicine; Internal Medicine Cardiovascular Disease; Admitting Provider Family Medicine; Emergency Provider Emergency Medicine; Visit Provider Family Medicine
PROC: 4A023N8 Measurement of Cardiac Sampling and Pressure, Bilateral, Percutaneous Approach (ICD-10-PCS; principal; 2022-05-09 12:30)
DX: I21.4 Non-ST elevation (NSTEMI) myocardial infarction (principal); I50.21 Acute systolic (congestive) heart failure; J96.11 Chronic respiratory failure with hypoxia; N39.0 Urinary tract infection, site not specified; I48.91 Unspecified atrial fibrillation; I34.0 Nonrheumatic mitral (valve) insufficiency; I25.10 Atherosclerotic heart disease of native coronary artery without angina pectoris; E87.6 Hypokalemia; E83.42 Hypomagnesemia; Z79.84 Long term (current) use of oral hypoglycemic drugs; J44.9 Chronic obstructive pulmonary disease, unspecified; M19.90 Unspecified osteoarthritis, unspecified site; K52.9 Noninfective gastroenteritis and colitis, unspecified; E11.65 Type 2 diabetes mellitus with hyperglycemia
CPT/HCPCS: 36415; 71045; 71275; 74177; 80048; 80076; 81001; 82330; 82810; 82962; 83036; 83690; 83735; 83880; 84132; 84145; 84436; 84443; 84479; 84484; 85025; 87086; 87088; 87186; 93005; 93306; 93312; 93460; 94640; 94760; 94761; 99152; 99291; C1725; C1769; C1894; C9803; J1644; J1956; J2405; J3475; Q9967; U0003; U0005

== ENCOUNTER → 2022-05-20 14:24 | Outpatient (CLI) | payer MEDICARE, SELFPAY ==
[2022-05-20 15:17] LABS: Basophils # 0.1 K/mm3 (0-0.2); Basophils % 1.2 % (0.1-2.0); Eosinophils # 0.1 K/mm3 (0.0-0.4); Eosinophils % 1.1 % (0.1-12.0); Hematocrit 44.4 % (37.0-47.0); Hemoglobin 14.1 g/dL (12.2-16.2); Lymphocytes # 2.9 K/mm3 (0.7-4.5); Lymphocytes % 26.5 % (10-50); Mean Corpuscular HGB Conc 31.7 g/dL (31.8-35.4); Mean Corpuscular Hemoglobin 29.5 pg (27.0-31.2); Mean Corpuscular Volume 92.9 fl (81-99); Mean Platelet Volume 8.6 fl (7.4-10.4); Monocytes # 0.7 K/mm3 (0.1-1.0); Monocytes % 6.1 % (1.7-9.3); Neutrophils # 7.2 K/mm3 (1.8-7.8); Neutrophils % 65.1 % (37.0-80.0); Platelet Count 267 K/mm3 (142-424); Red Blood Count 4.78 M/mm3 (4.20-5.40); Red Cell Distribution Width 15.1 % (11.5-17.5)
[2022-05-20 16:21] LABS: Blood Urea Nitrogen 25 mg/dl (7-17); Calcium 7.6 mg/dl (8.4-10.2); Carbon Dioxide 34 mmol/L (22.0-30.0); Chloride 100 mmol/L (98-107); Estimated Glomerular Filt Rate 50 ml/min (>60); GFR (African American) 60 ML/MIN (>60); Glucose 124 mg/dl (74-100); Sodium 141 mmol/L (136-145)
== END ==
PROVIDERS: PCP Family Medicine; Visit Provider Nurse Practitioner
DX: F17.200 Nicotine dependence, unspecified, uncomplicated (principal); I34.0 Nonrheumatic mitral (valve) insufficiency; I48.91 Unspecified atrial fibrillation; I50.21 Acute systolic (congestive) heart failure; I11.0 Hypertensive heart disease with heart failure
CPT/HCPCS: 36415; 80048; 85025

== ENCOUNTER → 2022-05-23 09:35 | Outpatient (CLI) | payer MEDICARE, OTHER, SELFPAY | PROVIDERS: PCP Family Medicine; Visit Provider Nurse Practitioner | DX: Z01.810 Encounter for preprocedural cardiovascular examination (principal); R06.02 Shortness of breath; I34.0 Nonrheumatic mitral (valve) insufficiency | CPT/HCPCS: 94060; 94726; 94729 ==

== ENCOUNTER → 2022-05-29 15:31 | Outpatient (CLI) | payer MEDICARE, OTHER, SELFPAY ==
--- NOTE | 2022-05-29 15:38 | CA_ITS ---
FINAL REPORT TECHNIQUE: Ultrasound images of the deep venous system were obtained from the left groin to the calf veins. CLINICAL HISTORY: leg pain, edema FINDINGS: The deep venous system is normally compressible. Normal flow is identified. IMPRESSION: No evidence of left lower extremity DVT. Reviewed, Interpreted and Dictated by Jaguar Purcell MD Transcribed by Ghada Le Authenticated and [facility] [place] [place]
== END ==
PROVIDERS: PCP Family Medicine; Visit Provider Nurse Practitioner
DX: M79.605 Pain in left leg (principal); R60.0 Localized edema
CPT/HCPCS: 93971

== ENCOUNTER 2022-05-30 10:38 | Day surgery (SDC) | payer MEDICARE, OTHER, SELFPAY ==
[2022-05-30] VITALS (14 sets, daily range): BP systolic 144–167; BP diastolic 80–97; PULSE 78–93; RESP 17–20; O2SAT 87–97; BMI 23.6
--- NOTE | 2022-05-30 07:30 | IR_ITS ---
APPROVED REPORT Patient Location: Outpatient Sales Representative Aircraft: TRACI Harper RT (R) PROCEDURES Drug-eluting stent deployment to the proximal and mid LAD Drug-eluting stent deployment to the proximal and mid circumflex artery Drug-eluting stent deployment to the first obtuse marginal artery INDICATION Multivessel coronary artery disease, Patient was deemed a nonsurgical candidate due to severe COPD Informed consent was obtained prior to the procedure. COMPLICATIONS None Estimated Blood Loss: Less than 10 mls TECHNIQUE One percent lidocaine used to anesthetize the right anterior aspect of the wrist. The right radial artery was accessed via the Seldinger technique. A 6 Salvadorean sheath was placed in the right radial artery. 2.5 mg of verapamil, 800 mcg of nitroglycerin, 1mg Lidocaine and 5000 U Heparin were given through the arterial sheath. Therapeutic heparin was administered giving a therapeutic ACT and the Poppa guide catheter was placed in the left main artery followed by Choice PT extra-support wire being placed on the circumflex artery. Primary stenting could not be performed therefore 3 mm x 20 mm balloon was deployed at 20 sae to predilate. A 3.5 x 38 mm resolute Lisandro stent was placed in the first obtuse marginal artery extending back into the circumflex artery and deployed at 16 sae. An additional 3.5 x 18 mm resolute Lisandro stent was placed proximal to this in the circumflex artery is still overlapping the first stent and deployed at 20 sae reducing the critical stenosis to 0%. JAKE-3 flow was present before and after the procedure. Following this the wire was placed down the LAD and a 3.5 x 38 mm resolute Lisandro stent was placed in the proximal to mid LAD and deployed at 20 sae. An additional 3.5 x 12 mm resolute Lisandro stent was placed distal to the for stent yet still overlapping the stent and then deployed at 16 sae. The balloon was brought back and meshed at 20 sae and then brought back at 24 and 26 sae in the midportion and area that required further dilatation. JAKE-3 flow was present before and after the procedure. At the end of the procedure the apparatus was removed the sheath was removed and hemostasis was achieved using TR banding patient was transferred to the postop putting in stable condition IMPRESSION Critical three-vessel coronary disease as described above Successful revascularization of the proximal and mid LAD severe disease reduced to 0% with 2 contiguous drug-eluting stents Successful revascularization of the proximal and mid circumflex artery which extended into a large first obtuse marginal artery critical disease reduced to 0% with 2 contiguous drug-eluting stents Chronically occluded dominant right coronary which fills via extensive left to right collaterals PLAN 1. Aspirin Plavix and Eliquis 2. LDL less than 55 to be achieved with high intensity statin 3. Patient will follow-up at [facility] for plans to proceed with mitral valve clip in order to treat the severe mitral regurgitation 4. Cardiac rehabilitation 5. Avoidance of tobacco products 6. Risk factor modification Electronically signed by : Les Rodríguez MD 05/30/2022 13:01:54
[2022-05-30 11:33] LABS: Basophils # 0.1 K/mm3 (0-0.2); Basophils % 1.2 % (0.1-2.0); Eosinophils # 0.1 K/mm3 (0.0-0.4); Hematocrit 45.5 % (37.0-47.0); Hemoglobin 13.9 g/dL (12.2-16.2); Lymphocytes # 2.1 K/mm3 (0.7-4.5); Lymphocytes % 21.6 % (10-50); Mean Corpuscular HGB Conc 30.5 g/dL (31.8-35.4); Mean Corpuscular Volume 95.2 fl (81-99); Mean Platelet Volume 8.4 fl (7.4-10.4); Monocytes # 0.5 K/mm3 (0.1-1.0); Monocytes % 5.3 % (1.7-9.3); Neutrophils # 6.7 K/mm3 (1.8-7.8); Neutrophils % 70.9 % (37.0-80.0); Platelet Count 364 K/mm3 (142-424); Red Blood Count 4.78 M/mm3 (4.20-5.40); Red Cell Distribution Width 15.5 % (11.5-17.5); White Blood Count 9.5 K/mm3 (4.8-10.8)
[2022-05-30 11:35] LABS: Chloride 106 mmol/L (98-107); Potassium 3.8 mmoL/L (3.5-5.1); Sodium 146 mmol/L (136-145)
[2022-05-30 11:38] LABS: Blood Urea Nitrogen 22 mg/dl (7-17); Creatinine Clearance Estimated 64 mL/min (50-200); Estimated Glomerular Filt Rate 100 ml/min (>60); GFR (African American) 121 ML/MIN (>60)
[2022-05-30 11:39] LABS: Anion Gap 13.8 mEq/L (5-15); Calcium 7.8 mg/dl (8.4-10.2); Carbon Dioxide 30 mmol/L (22.0-30.0); Glucose 100 mg/dl (74-100)
[2022-05-30 13:55] LABS: CATHL Activated Clotting Time > 400 SEC (74-125)
--- NOTE | 2022-05-30 15:34 | HMH.PHACL ---
PHA Weather Forcaster Discharge Med Metal Weather Stripper: Ev Gaona has received discharge medication counseling on the following medications: -ASPIRIN (ON PREVIOUSLY) -PLAVIX (BLOOD THINNER/ANTIPLATELET, BLEED/BRUISE RISK, BUMP HEAD = GO TO ER, BLEED LOCATION AND APPEARANCE, POSSBILE SHORTNESS OF BREATH) -LOVASTATIN (STATIN, FOR CHOLESTEROL, TAKE AT BEDTIME, WATCH FOR MUSCLE PAIN/WEAKNESS) -ENTRESTO (ON PREVIOUSLY) -BISOPROLOL (ON PREVIOUSLY) PATIENT VERBALIZED NO QUESTIONS AT THIS TIME.
== END 2022-05-30 16:24 | disposition home or self-care (01) ==
LOC: CATHLAB 10:40
PROVIDERS: PCP Family Medicine; Visit Provider Internal Medicine
DX: I25.10 Atherosclerotic heart disease of native coronary artery without angina pectoris (principal); Z79.01 Long term (current) use of anticoagulants; Z79.899 Other long term (current) drug therapy; E11.9 Type 2 diabetes mellitus without complications; I48.91 Unspecified atrial fibrillation; F17.210 Nicotine dependence, cigarettes, uncomplicated; I11.0 Hypertensive heart disease with heart failure; J96.11 Chronic respiratory failure with hypoxia; I50.21 Acute systolic (congestive) heart failure; I34.0 Nonrheumatic mitral (valve) insufficiency
CPT/HCPCS: 80048; 85025; 85347; 92928; 99152; 99153; C1725; C1769; C1876; C9600; J1644; Q9967

== ENCOUNTER → 2022-07-11 09:56 | Outpatient (CLI) | payer MEDICARE, OTHER, SELFPAY ==
--- NOTE | 2022-07-11 10:01 | CT_ITS ---
FINAL REPORT TECHNIQUE: Pre and postcontrast axial imaging of the neck soft tissues was obtained. Reformatted images were also obtained and reviewed. This study was performed with techniques to keep radiation doses as low as reasonably achievable (ALARA). Individualized dose reduction techniques using automated exposure control or adjustment of mA and/or kV according to the patient's size were employed. CLINICAL HISTORY: MASS on lt side of neck COMPARISON: 05/08/2022 FINDINGS: There is adequate opacification of the cervical vasculature. There are multiple cervical lymph nodes. In nodule posterior to the right parotid gland is seen measuring 11 mm, favor lymph node. There is a more complex appearing focus measuring 1.4 x 1.8 cm posterior to left parotid gland which also likely represents a lymph node. Exophytic parotid lesion considered less likely. This is best seen on images 40-44 of series 5. There is moderate mucoperiosteal thickening with air-fluid level of the right maxillary sinus consistent with acute and chronic sinusitis. There is an ovoid lesion in the inferior left thyroid lobe measuring 2.4 x 1.4 cm seen on image 76 of series 5. The nasopharynx, oropharynx and larynx are unremarkable. IMPRESSION: Nodules posterior to the bilateral parotid glands, favor lymph nodes. Mucoperiosteal thickening with air-fluid level of the right maxillary sinus consistent with acute and chronic sinusitis. Stable left thyroid lobe lesion. Reviewed, Interpreted and Dictated by Jaguar Purcell MD Transcribed by Clau Miranda Authenticated and [facility]
[2022-07-11 10:37] LABS: Blood Urea Nitrogen 28 mg/dl (7-17); Estimated Glomerular Filt Rate 63 ml/min (>60); GFR (African American) 76 ML/MIN (>60)
== END ==
PROVIDERS: PCP Family Medicine; Visit Provider Family Medicine
DX: R22.1 Localized swelling, mass and lump, neck (principal)
CPT/HCPCS: 36415; 70492; 82565; 84520; Q9967

== ENCOUNTER → 2022-08-27 10:02 | Outpatient (CLI) | payer OTHER, MEDICARE, SELFPAY | PROVIDERS: PCP Family Medicine; Visit Provider Family Medicine Hospice and Palliative Medicine | DX: R19.7 Diarrhea, unspecified (principal); K92.1 Melena | CPT/HCPCS: 87045; 87493 ==